=== PATIENT | female | born 1950 | race Caucasian/White ===

== ENCOUNTER → 2017-08-29 | Outpatient (CLI) | payer MEDICARE ==
[2016-12-19 14:47] VITALS: BMI 44.5
[~2017-08-29] MED LIST: ACTONEL; ALB17R INH; ALBU8.5H IH; ALE70 PO; ALEN70TA2 PO; ALPR-429 PO; ARIP5TAB28 PO; ASPI-1471 PO; ASPI81TA60 GT; ASPI81TA94 PO; BIMA2.5D5 OU; BIMOD OP; CALC-797 PO; CALC600T63 PO; CALCIUM; CEFU250T11 PO; CEPH250C37 PO; CHOL100059 PO; CHOL200074 PO; CIT20 PO; CITA-139 PO; CLI150 PO; CLIN300C99 PO; CPAP; DEN60I SUBQ; DOC100 PO; DOXY-181 PO; DOXY150T6 PO; ESC10 PO; ESCI5TAB3 PO; FERR-53 PO; FLU IM; FLU150 PO; FLU45SYR25 IM ONLY; FLU60SYR30 IM ONLY; FLUO-176 PO; FLUO-177 PO; FLUO-201 PO; FURO20TA19 PO; HYDR-4309 PO; IOPAMIDOL 76% 75 ML INFUS BTL 75 ML ONE; IPR14R ASDIRECTED; IPR14R INH; IPRA0.2S8 IH; LISI-362 PO; LISI-368 PO; LISINOPRIL; LORA-1456 PO; MAGN250T34 PO; MAGN355O8 PO; MAGN400C PO; METF-410 PO; METFORMIN; METR-160 PO; METXR500 PO; MON10 PO; MONT10TA PO; MONT10TA4 PO; NS(*) 0.9% 10 ML VIAL 10 ML ONE; NYST15PO4 TP; OMEP-137 PO; OMEP-153 PO; OXYC-373 PO; OXYGEN; OXYGEN INH; OXYGENHOME INH; PAN40 PO; PANT40TA65 PO; PER PO; PNEU0.5D3 IM; PNV51CAP PO; POTA8CAP9 PO; PRED-1 PO; PRED-314 PO; PRILOSEC; SERT-184 PO; SIMV-42 PO; SIMV-49 PO; SINGULAIR; SUCR1TAB51 PO; WARF5TAB23 PO; WARF7.5T26 PO
--- NOTE | 2017-08-29 15:00 | RADIOLOGY IMAGING REPORT ---
FACILITY: [facility] - [place] PATIENT NAME: Latonya Chang : 1950 MR: [id number] V: [id number] EXAM DATE: ORDERING PHYSICIAN: ADRIÁN ALEMAN TECHNOLOGIST: Location: [facility] Patient: Latonya Chang : 1950 Visit/Account:[id number] Date of Sevice: 08/29/2017 CT abdomen with IV contrast CT pelvis with IV contrast History: Abdominal pain and diarrhea COMPARISON STUDIES: CT abdomen and pelvis 03/02/2015. TECHNIQUE: Axial CT images were obtained through the abdomen and pelvis during injection of nonioni c iodinated intravenous contrast. Reformatted coronal and sagittal images were also obtained. Contrast: 75 ml of Isovue-370 IV contrast. One of the following dose optimization techniques was utilized in the performance of this exam: Autom ated exposure control; adjustment of the mA and/or kV according to the patient's size; or use of an i terative reconstruction technique. Specific details can be referenced in the facility's radiology C T exam operational policy. FINDINGS: Chest bases: Negative Liver: Liver has irregular margins and mild diffuse coarse enhancement. Right liver lobe length is 20 cm. Main portal vein measures 15 mm diameter. Gallbladder and bile ducts: Cholecystectomy. Normal sized bile ducts. Spleen: Spleen is large, measuring 15 x 7 x 14 cm, and is mildly increased compared to the previous study. Pancreas: Fat haziness is seen in the region of the pancreas head. Adrenal glands: negative Kidneys: negative Pelvic structures: Uterus and ovaries are atrophic. Bowel and mesenteries: Several sigmoid colon diverticula are without acute inflammatory change. Mahsa g small bowel segment in the left midabdomen is distended to a diameter of 4 cm, with focal transitio n to decompressed small bowel, best seen on coronal imaging. Ascites: None Vessels: Varices are observed throughout the abdomen and pelvis. Moderate calcification of the abdo elma aorta and common iliac arteries. Musculoskeletal: Chronic compression fracture of the superior endplate of T11. L4-5 grade 1 jasper listhesis is due to facet bone hypertrophy. Body wall: negative Lymph node assessment: negative IMPRESSION: 1. Fat haziness in the region of the pancreas head could indicate pancreatitis. Correlate with seru m amylase and lipase. 2. Suspicious for partial mechanical small bowel obstruction in the left midabdomen which could be c aused by adhesions. 3. Cirrhotic appearing liver has not significantly changed from 2015. 4. Findings of portal hypertension include increasing splenomegaly, abdominal/pelvic varices and dis tended main portal vein. Report Dictated By: Reshma Taylor MD at 08/29/2017 2:03 PM Report E-Signed By: Reshma Taylor MD at 08/29/2017 2:55 PM WSN:[email or web address]
== END ==
LOC: CT 02:39
PROVIDERS: ATTEND Family Medicine
DX: R16.1 Splenomegaly, not elsewhere classified (principal); K57.30 Diverticulosis of large intestine without perforation or abscess without bleeding; Z90.49 Acquired absence of other specified parts of digestive tract; E11.9 Type 2 diabetes mellitus without complications
CPT/HCPCS: 36415; 74177; Q9967; 82310; 82374; 82435; 82565; 82947; 84132; 84295; 84520

== ENCOUNTER 2017-09-05 07:38 | Outpatient (RCR) | payer MEDICARE ==
[2016-12-19 14:47] VITALS: BMI 44.5
[~2017-09-05 07:38] MED LIST changes: -MULT-1354 PO
[2017-09-05 10:53] VITALS: BP 132/75
[2017-09-05] MEDS ORDERED: MULT-1354 PO (11:02)
--- NOTE | 2017-09-05 13:13 | ONC Progress Note - NP.Halsey ---
Patient History Date of Service Sep 05, 2017 Reason For Visit/HPI Patient is seen in the clinic today for pain in the left side of her jaw. Patient reports that she previously experienced discomfort about a week ago with edema and tenderness. Patient believes that the pain has slightly decreased over the last week. She continues to have some swelling. In addition patient reports that she had approximately 2 months of experiencing constipation with occasional episodes of diarrhea. Patient then reports that yesterday she had a large bowel movement and feels that the discomfort in her abdomen has significantly improved. She continues to have bilateral flank discomfort and reports that she is having urgency with voiding. She had a CT scan done earlier this week which was ordered by Dr. Fields. This was reviewed today. Patient has no evidence of metastatic disease but a possibility of inflammation around the pancreas and a fatty liver with liver changes. Amylase and lipase were drawn by Dr. Ross and were noted to be within normal limits, liver enzymes are within normal limits. Has patient's pain has improved other then some discomfort possibly from voiding and labs were within normal limits no change in care has been made. Patient is usually seen in the clinic for her left breast invasive ductal carcinoma diagnosed in October 2011. Patient has been without evidence of recurrent disease since that time. Problem List (1) Breast cancer Oncology History The patient is a 67-year-old woman who presented with abnormal mammogram in October 2011, where there was 2.1 cm left breast spiculated region at the upper outer quadrant of the left breast. With additional mammography completed October 24, 2011, this showed 1.6 spiculated mass in the upper outer quadrant of the left breast. Ultrasound done on October 24, 2011 did reveal 1.1 cm irregular hypoechoic shadowing mass in the upper outer quadrant of the left breast at 2 o' clock position. Left breast biopsy on October 29, 2011 came back positive for invasive ductal carcinoma, ER negative, SD negative, HER2/prashanth negative, grade II /III. The patient ended up having lumpectomy and following surgery had adjuvant chemotherapy with six cycles of TC regimen with Taxotere and cyclophosphamide received between January 08, 2012 through April 22, 2012. This was followed by adjuvant radiation therapy and patient was put into complete remission. Medical History Family History: Essential hypertension FATHER (Myocardial Infarction; Hypertension), , Age:82 BROTHER OR SISTER (Prostate Cancer; Hypertension), Age:73 FH: COPD (chronic obstructive pulmonary disease) MOTHER (COPD), , Age:82 FH: glaucoma Maternal Grandfather (Glaucoma), FH: hypertension FH: myocardial infarction FATHER (Myocardial Infarction; Hypertension), , Age:82 FH: non-Hodgkin's lymphoma Maternal Uncle, FH: prostate cancer BROTHER OR SISTER (Prostate Cancer; Hypertension), Age:73 FH: stomach cancer Maternal Grandmother (Stomach Cancer), , Age:Unknown FH: stroke Paternal Grandfather (Stroke;CVA), Psychosocial History Social History The patient is single. She has one child, a son. The patient is retired. Denies any abuse of tobacco, alcohol or drugs. She used occasional drugs in the past. Smoking History: Yes Smoking Status: Former Smoker Exposure to Second Hand Smoke?: Yes Medications and Allergies Active Scripts Albuterol Sulfate (VENTOLIN HFA) 18 Gm Inh, 2 PUFF INH Q4H, #1 INH 5 Refills Prov:YVETTE ROSS MD 09/03/17 Potassium Chloride (POTASSIUM CHLORIDE) 8 Meq Capsule.er, 1 CAP PO QODAY, #30 TAB 6 Refills Prov:JOSTIN CHO WELL TESTING OPERATOR-BC, ONC 09/03/17 Ipratropium Peck 17 Mcg/Act (ATROVENT HFA 17 MCG/ACT) 12.9 Gm Inh, 2 PUFF ASDIRECTED QID, #1 INH 5 Refills Prov:YVETTE ROSS MD 08/29/17 Pantoprazole Sodium (PANTOPRAZOLE SODIUM) 40 Mg Tablet.dr, 1 TAB PO BID, #60 TAB 0 Refills Prov:YVETTE ROSS MD 08/27/17 Sucralfate (SUCRALFATE) 1 Gm Tablet, 1 GM PO BID, #60 TAB 5 Refills Prov:YVETTE ROSS MD 07/09/17 Warfarin Sodium (WARFARIN SODIUM) 5 Mg Tablet, 5-10 MG PO DIRECTED, #60 TAB 5 Refills 10 mg on Mon-Wed-Fri and 5mg on all other days (OR DIRECTED by Dr. Raya Ewing PharmD). Prov:SERA MCLAUGHLIN MD 12/22/16 Nystatin 100,000 Unit/Gm Top Powder (NYSTATIN 100,000 UNIT/GM TOP POWDER) 15 Gm Powder, 15 GM TP 2-3XD, #1 BOTTLE 1 Refill apply thin layer to affected area 2-3 times daily as needed until healed Prov:RAYA EWING PHARMD 12/12/16 Montelukast Sodium (SINGULAIR) 10 Mg Tablet, 1 TAB PO QDAY, #90 TAB 1 Refill Prov:YVETTE ROSS MD 03/29/15 Simvastatin (SIMVASTATIN) 20 Mg Tablet, 1 TAB PO HS, #30 TAB 11 Refills Prov:YVETTE ROSS MD 04/26/14 Lisinopril (LISINOPRIL) 10 Mg Tablet, 1 TAB PO QDAY, #90 TAB 3 Refills Prov:YVETTE ROSS MD 04/26/14 Reported Medications Multivitamin (ONE DAILY MULTIVITAMIN) 1 Each Tablet, 1 EACH PO DAILY 09/05/17 Magnesium Oxide (MAGNESIUM) 400 Mg Capsule, 1 CAP PO QDAY, CAPSULE 05/01/17 Fluoxetine Hcl (FLUOXETINE HCL) 10 Mg Capsule, 1 CAP PO QDAY, CAPSULE 11/26/16 Denosumab (PROLIA) 60 Mg/1 Ml Injs, 60 MG SUBQ Q 6 MONTHS 11/20/16 Alprazolam (XANAX) 0.5 Mg Tablet, 1 TAB PO TID Y for ANXIETY, TAB 11/20/16 Oxygen (OXYGEN) Inha, 2.5 L INH HS, L and with C-PAP at hs, and prn shortness of breath 04/04/15 Cpap (CPAP HOME) Inha, HS with 2.5 liters oxygen 04/04/15 Pnv51/Iron Fum/Fa/Om-3/Dha/Epa ( MULTI + DHA SOFTGEL) 1 Each Capsule, 1 EACH PO QDAY, CAPSULE 10/27/14 Cholecalciferol (Vitamin D3) (VITAMIN D-3) 2,000 Unit Capsule, 2 CAP PO QDAY 10/27/14 Bimatoprost (LUMIGAN) 2.5 Ml Drops, 1 GTT OU HS 03/24/14 Metformin Hcl (METFORMIN HCL) 500 Mg Tablet, 2 TAB PO BID 03/24/14 Discontinued Scripts Albuterol Sulfate 90 Mcg/Act (PROAIR HFA 90 MCG/ACT) 8.5 Gm Hfa.aer.ad, 2 PUFF IH Q4H Y for shortness of breath, #2 INH 3 Refills Prov:YVETTE ROSS MD 08/28/17 Allergies: Coded Allergies: Sulfa (Sulfonamide Antibiotics) (Verified Allergy, Mild, rash, 11/20/16) amoxicillin (Verified Allergy, Mild, rash, 11/20/16) erythromycin base (Verified Allergy, Mild, rash, 11/20/16) adhesive (Verified Allergy, Unknown, local reaction only if on for a long time, 11/20/16) Review of System/Physical Exam Review of Systems All Systems Reviewed/Normal: Yes, Except as Noted Respiratory: Positive for Shortness of Breath HEENT: Other (left-sided jaw pain without any tooth pain, no teeth in the area. ) Gastrointestinal: Diarrhea, Constipation, Abdominal Pain Genitourinary: Positive for Other (frequency and urgency without dysuria) Hematologic: Positive for Fatigue, Positive for Weakness Psychiatric: No Anxiety Skin: Positive for Erythema Physical Exam Vital Signs Temperature: 97.3 Pulse: 73 BP Systolic: 132 BP Diastolic: 75 Respiratory Rate: 16 O2 SAT: 90 O2 Delivery: Height (inches) 60.00 Weight lb: 228 Weight oz: 5.0 Weight Kg (Ming): Pain: 1 ECOG Score: 1 General: Stable, Well Developed, Well Nourished, Not In Acute Distress HEENT: No Trauma, No Conjunctivitis, No Icterus, No Mucositis, No Oral Thrush, No Sinus Tenderness, Other (mild tenderness with palpation over the left jaw and soft tissue with mild edema and mild erythema. I will do an ultrasound.) Neck: Supple Lungs: Clear to Auscultation (lungs are decreased bilaterally without wheezing) Heart: Regular Rate, Regular Rhythm Abdomen: No Hepatosplenomegaly, No Masses, Other (large body habitus makes assessment difficult. Recent CT was reviewed with patient.), Tenderness ( tenderness with deep palpation bilateral abdomen) Extremities: No Cyanosis, No Clubbing, No Edema Lymphadenopathy: No Cervical, No Subclavicular, Other (mild lymphadenopathy in the left mandible with mild erythema and tenderness with palpation) Psychiatric: Mood appears normal, Affect appears normal Skin: No Skin Rashes, No Bruising, No Purpura Diagnostic Studies Diagnostic Studies Laboratory Laboratory Tests 09/05/17 11:30: Urine Color Yellow, Urine Clarity Clear, Urine pH 5.0, Urine Specific [place] 1.021, Urine Protein Negative, Urine Glucose (UA) Negative, Urine Ketones Trace , Urine Blood Negative, Urine Nitrite Negative, Urine Bilirubin Negative, Urine Urobilinogen 2.0, Urine Leukocyte Esterase Negative, Urine RBC None, Urine WBC < 1, Urine Squamous Epithelial Cells Many, Urine Bacteria Negative, Urine Mucus Few Assessment and Plan Assessment & Plan 1. Stage II (pT2 pN0 cM0) left breast invasive ductal carcinoma. One sentinel lymph node was negative for metastasis. Tumor size was 2.4 cm triple negative. Patient received six courses of adjuvant chemotherapy with TC regimen with cyclophosphamide and Taxotere between January 08, 2012 through April 22, 2012, followed by radiation therapy with 59.4 Gy received between May 25, 2012 through July 22, 2012. Patient currently is in remission. It has been 5 years since her diagnosis so she will be seen yearly with a mammogram and CBC, chem panel and CA 27-29. 2. History of bilateral pulmonary embolism. 3. Diabetes mellitus on metformin. 4. Osteoporosis. 5. Chronic obstructive pulmonary disease. 6. Depression and anxiety. 7. Left-sided jaw discomfort: Ultrasound scheduled for evaluation. Patient previously had a stone in her right parotid. 8. Urinary frequency and urgency. UA is negative. 9. Abdominal discomfort. Patient has a non-descriptive bilateral abdominal discomfort with palpation and bilateral flank discomfort. CT of the abdomen and pelvis are suggestive of a possible pancreatitis without positive mass. Amylase and lipase were completed today and are within normal limits. CT also reports possible small bowel obstruction. Patient has had constipation for the last 2 months however had a very large bowel movement and bowel sounds are active today. She is encouraged to avoid spicy foods and greasy foods at this time. Patient will be seen in follow-up in one week to review symptoms. . PLAN 1. Continue followup in one week to review ultrasound soft tissue left-sided neck and review abdominal discomfort. 2. Patient to return in one year with CBC, chem panel and CA 27-29. 3. Patient is to contact us for any new concerns or complaints. 4. Patient is instructed to go to the emergency room if she has increased symptoms over the weekend of abdominal pain and acute constipation with no bowel movement. I personally spent a total of 35 minutes. Of that 35 minutes was counseling/ coordination of patient's care. See my note above for details. Copies to: YVETTE ROSS MD; ADRIÁN FIELDS NANCY J WELL TESTING OPERATOR-BC, ONC Sep 05, 2017 13:13
[2017-09-05] MEDS ORDERED: IPR14R ASDIRECTED (14:31)
--- NOTE | 2017-09-05 15:14 | RADIOLOGY IMAGING REPORT ---
FACILITY: [facility] - [place] PATIENT NAME: Latonya Chang : 1950 MR: [id number] V: [id number] EXAM DATE: ORDERING PHYSICIAN: JOSTIN CHO TECHNOLOGIST: Location: [facility] Patient: Latonya Chang : 1950 Visit/Account:[id number] Date of Sevice: 09/05/2017 ADDENDUM #1 Exam title should state ultrasound soft tissue head and neck Report Dictated By: Alyssa Manjarrez MD at 09/11/2017 8:47 AM Report E-Signed By: Alyssa Manjarrez MD at 09/11/2017 8:48 AM ORIGINAL REPORT Exam type: SOFT TISSUE HEAD NECK History: Swelling left side of neck and face Comparison: None. Findings: In zone one bilaterally there are probably lobular hypoechoic structures that appear relatively symme tric bilaterally measuring 2.3 x 1.8 x 2.7 cm on the right and 2.3 x 2.1 x 1.5 cm on the left. Due t o the symmetric nature this could represent an atypical presentation of the submandibular glands or p ossibly related to musculature. There is a small fatty replaced lymph node in zone three on the right measuring 8.6 x 4.5 x 12 mm There is a 6.9 x 4 x 7.7 mm fatty replaced lymph nodes on one on the right. In zone six on the right there is an 8.2 mm in diameter cyst in the right lobe the thyroid gland Incidentally noted is a large calcification at the left carotid bifurcation with acoustic shadowing. Flow was seen proximal and distal to this calcification although not in the zone of calcification. IMPRESSION: 1. There bilateral poly- lobular hypoechoic structures in zone one. Due to the symmetric nature the se may represent an atypical presentation of the submandibular glands or possibly related to musculat ure however given the clinical history of a prior right parotid mass and swelling of the left-sided t he face adjacent to the ear CT of the neck with contrast is recommended for further evaluation Incidentally noted is a large calcification at the left carotid bifurcation with acoustic shadowing. Flow seen proximal and distal to this calcification although not in the zone of the calcification th erefore a carotid duplex scan is recommended Report Dictated By: Alyssa Manjarrez MD at 09/05/2017 3:05 PM Report E-Signed By: Alyssa Manjarrez MD at 09/05/2017 3:10 PM DARION:MARIANA
--- NOTE | 2017-09-11 17:07 | RADIOLOGY IMAGING REPORT ---
FACILITY: [facility] PATIENT NAME: Latonya Chang : 1950 MR: [id number] V: [id number] EXAM DATE: ORDERING PHYSICIAN: JOSTIN CHO TECHNOLOGIST: Location: [facility] [place] Patient: Latonya Chang : 1950 Visit/Account:[id number] Date of Sevice: 09/11/2017 Bilateral carotid artery Doppler duplex ultrasound scan. HISTORY: Left carotid calcification. COMPARISON: Neck ultrasound 09/05/2017. A color flow Doppler duplex ultrasound scan with spectral analysis was performed on the carotid and v ertebral arteries bilaterally. Measurement of carotid stenosis is based on velocity parameters that correlate the residual internal carotid diameter with [place] Symptomatic Carotid Endarterecto my Trial (NASCET)- based stenosis levels. Right carotid peak systolic velocities are as follows: Superior right ICA - 130 cm/sec. Mid right ICA - 123 cm/sec. Proximal right ICA - 103 cm/sec. Right carotid bulb - 98 cm/sec. Superior right CCA - 87 cm/sec. Mid right CCA- 93 cm/sec. Inferior right CCA- 116 cm/sec. Proximal right ECA- 121 cm/sec. Mid right vertebral- 50 cm/sec. Right ICA/CCA ratio- 1.4 ( normal < 1.5 ). Antegrade right vertebral artery flow- YES. Left carotid peak systolic velocities are as follows: Superior left ICA - 106 cm/sec. Mid left ICA- 99 cm/sec. Proximal left ICA- 106 cm/sec. Left carotid bulb- 95 cm/sec. Superior left CCA- 83 cm/sec. Mid left CCA- 97 cm/sec. Inferior left CCA- 112 cm/sec. Proximal left ECA- 456 cm/sec. Mid left vertebral- 37 cm/sec. Left ICA/CCA ratio- 1.1 ( normal < 1.5). Antegrade left vertebral artery flow- YES. Calcified plaques are present in the carotid bulbs and proximal internal carotid and external carotid arteries bilaterally. IMPRESSION: 50-70% stenosis of the proximal right internal carotid artery. 30-50% stenoses of the carotid bulbs bilaterally. 30-50% stenosis of the proximal left internal carotid artery. Greater than 90% stenosis of the proximal left external carotid artery. Report Dictated By: Fernando Campo MD at 09/11/2017 4:45 PM Report E-Signed By: Fernando Campo MD at 09/11/2017 5:02 PM WSN:[email or web address]
[2017-09-16] MEDS ORDERED: IOPAMIDOL 76% 75 ML INFUS BTL 75 ML ONE (08:27)
--- NOTE | 2017-09-16 11:00 | RADIOLOGY IMAGING REPORT ---
FACILITY: [facility] PATIENT NAME: Latonya Chang : 1950 MR: [id number] V: [id number] EXAM DATE: ORDERING PHYSICIAN: JOSTIN CHO TECHNOLOGIST: Location: [facility] [place] Patient: Latonya Chang : 1950 Visit/Account:[id number] Date of Sevice: 09/16/2017 EXAMINATION: CT neck with IV contrast HISTORY: Parotid mass TECHNIQUE: CT was obtained through the neck following IV contrast administration. Sagittal and co gerhard reformatted images were generated. 75 mL of IV Isovue-370 injected. One of the following dose optimization techniques was utilized in the performance of this exam: autom ated exposure control; adjustment of the mA and/or kV according to patient size; or use of iterative reconstruction technique. Specific details can be referenced in the facility's radiology CT exam ope rational policy. COMPARISON: Ultrasound September 05, 2017 FINDINGS: Parotid/submandibular and thyroid glands: The right parotid gland is asymmetrically smaller when comp ared to the right keeping with residua of prior surgery. No right parotid gland mass identified. Mi nimal curvilinear granulation tissue adjacent to the right parotid gland. Otherwise normal. Pharyngeal and retropharyngeal soft tissues: Normal. Oral cavity and chair mechanic space soft tissues: Normal. Larynx/glottis and airway: Low density structure within or adjacent to the strap musculature just inf erior to the hyoid bone measures 1.9 x 1.3 cm transverse by 1.6 cm craniocaudad, axial image 52. Lymph nodes: Normal. Vessels: Calcified plaque in the carotid bulbs and proximal internal carotid arteries. Visualized orbits / brain: No significant finding. Upper chest: Left upper lobe 5 mm nodule, image 79. Bones/sinuses/mastoid air cells: Normal. IMPRESSION: 1. No parotid region mass. Diminutive right parotid gland in keeping with residua of prior surgery. 2. 1.9 x 1.3 x 1.6 cm probable benign thyroglossal duct cyst within or adjacent to the strap muscula ture just beneath the hyoid bone. Report Dictated By: Randell Jeong MD at 09/16/2017 10:47 AM Report E-Signed By: Randell Jeong MD at 09/16/2017 10:55 AM WSN:[id number]
[2017-09-26] MEDS ORDERED: FLUO-176 PO (16:28)
== END 2017-10-08 14:21 | disposition home or self-care (01) ==
LOC: ONC 07:38
PROVIDERS: ATTEND Nurse Practitioner Family
DX: Z85.3 Personal history of malignant neoplasm of breast (principal); Z86.711 Personal history of pulmonary embolism; E11.9 Type 2 diabetes mellitus without complications; M81.0 Age-related osteoporosis without current pathological fracture; J44.9 Chronic obstructive pulmonary disease, unspecified; R39.15 Urgency of urination; R35.0 Frequency of micturition; R10.9 Unspecified abdominal pain; Z79.899 Other long term (current) drug therapy; Z87.891 Personal history of nicotine dependence; M79.89 Other specified soft tissue disorders; R91.1 Solitary pulmonary nodule
CPT/HCPCS: 36415; 76536; 80074; 81001; 82150; 83036; 83690; 93880; G0463; G0472; 70491; 82040; 82247; 82310; 82374; 82435; 82465; 82565; 82947; 83718; 84075; 84132; 84155; 84295; 84450; 84460; 84478; 84520; 86803; 99212; Q9967

== ENCOUNTER → 2017-09-05 | Outpatient (CLI) | payer MEDICARE ==
[2016-12-19 14:47] VITALS: BMI 44.5
[~2017-09-05] MED LIST changes: +ALB18R INH; -IOPAMIDOL 76% 75 ML INFUS BTL 75 ML ONE; +MULT-1354 PO; -NS(*) 0.9% 10 ML VIAL 10 ML ONE
[2017-09-05 10:49] LABS: LDL CHOLESTEROL 71 mg/dl
== END ==
LOC: LAB 09:50
PROVIDERS: ATTEND Internal Medicine
DX: R10.9 Unspecified abdominal pain (principal); J44.9 Chronic obstructive pulmonary disease, unspecified; K74.60 Unspecified cirrhosis of liver; I10 Essential (primary) hypertension; E78.2 Mixed hyperlipidemia; E11.65 Type 2 diabetes mellitus with hyperglycemia
CPT/HCPCS: 36415; 80074; 82150; 83036; 83690; G0472; 82040; 82247; 82310; 82374; 82435; 82465; 82565; 82947; 83718; 84075; 84132; 84155; 84295; 84450; 84460; 84478; 84520; 86803

== ENCOUNTER → 2017-09-11 | Outpatient (CLI) | payer MEDICARE ==
[2016-12-19 14:47] VITALS: BMI 44.5
[~2017-09-11] MED LIST changes: +MULT-1354 PO
--- NOTE | 2017-09-12 09:06 | RADIOLOGY IMAGING REPORT ---
FACILITY: [facility] PATIENT NAME: GUILLE GRANT : [id number] MR: [id number] V: [id number] EXAM DATE: ORDERING PHYSICIAN: ADRIÁN ALEMAN TECHNOLOGIST: Jennifer Monroy PROCEDURE:BILATERAL DIGITAL SCREENING MAMMOGRAM WITH CAD ASSISTED INTERPRETATION & 3D TOMOSYNTHESIS COMPARISON:Prior mammograms 07/25/16, 10/06/15, 10/04/14, 04/20/14, 02/08/14, 08/03/13 INDICATIONS:SCREENING FINDINGS: Again noted of postsurgical changes from lumpectomy in the upper outer quadrant of the Left breast. The parenchymal pattern has remained stable allowing for difference in mammographic technique & patient positioning. Skin thickening over the Left breast from prior radiation therapy also again noted. There is no evidence of malignant appearing mass, malignant appearing calcifications or other secondary sign of malignancy in either breast at this time. DIAGNOSTIC CATEGORY 2--BENIGN FINDING. RECOMMENDATIONS: ROUTINE MAMMOGRAM AND CLINICAL EVALUATION. IMPRESSION: BIRADS 2: Benign finding No significant abnormality identified at this time other than postoperative and plus radiation changes of the Left breast. Dictated by: Alyssa Manjarrez M.D. on 09/11/2017 at 16:57 Transcribed by: BRITTANY on 09/12/2017 at 9:02 Approved by: Alyssa Manjarrez M.D. on 09/12/2017 at 9:05 [facility]
== END ==
LOC: MAMO 00:50
PROVIDERS: ATTEND Family Medicine
DX: Z12.31 Encounter for screening mammogram for malignant neoplasm of breast (principal)
CPT/HCPCS: 77063; 77067

== ENCOUNTER → 2017-09-16 | Outpatient (CLI) | payer MEDICARE ==
[2016-12-19 14:47] VITALS: BMI 44.5
--- NOTE | 2017-09-16 10:06 | RADIOLOGY IMAGING REPORT ---
FACILITY: [facility] PATIENT NAME: Latonya Chang : 1950 MR: [id number] V: [id number] EXAM DATE: ORDERING PHYSICIAN: YVETTE THOMAS TECHNOLOGIST: Location: [facility] Patient: Latonya Chang : 1950 Visit/Account:[id number] Date of Sevice: 09/16/2017 LIVER HISTORY: Cirrhosis, cholecystectomy COMPARISON: CT abdomen pelvis revealed very 2017 FINDINGS: Gallbladder: Surgically removed Liver: The liver is enlarged at 19.3 cm in length. There is a lobular contour to the liver. As appr opriate flow identified in the portal vein however the main portal vein is dilated at 1.8 cm. Common duct: Normal, five mm diameter. Pancreas: Slightly inhomogeneous Right kidney: Right kidney appears unremarkable measuring 10.6 cm in length. The resistive index is 0.72 Upper abdominal aorta and IVC: Patent. Ascites: None visualized. IMPRESSION: Hepatomegaly with a lobular contour to the liver consistent with the clinical history of cirrhosis. The portal vein demonstrates appropriate flow however the main portal vein is dilated at 1.8 cm consi stent with portal hypertension The pancreas appear slightly inhomogeneous could be secondary to inflammation Report Dictated By: Alyssa Manjarrez MD at 09/16/2017 9:56 AM Report E-Signed By: Alyssa Manjarrez MD at 09/16/2017 10:02 AM WSN:[email or web address]
== END ==
LOC: US 01:13
PROVIDERS: ATTEND Internal Medicine
DX: Z90.49 Acquired absence of other specified parts of digestive tract (principal); R16.0 Hepatomegaly, not elsewhere classified; K86.89 Other specified diseases of pancreas; K76.6 Portal hypertension
CPT/HCPCS: 76705

== ENCOUNTER → 2017-10-21 | Outpatient (CLI) | payer MEDICARE ==
[2016-12-19 14:47] VITALS: BMI 44.5
== END ==
LOC: LAB 11:52
PROVIDERS: ATTEND Internal Medicine Cardiovascular Disease
DX: I73.9 Peripheral vascular disease, unspecified (principal); I65.23 Occlusion and stenosis of bilateral carotid arteries; I10 Essential (primary) hypertension; E78.2 Mixed hyperlipidemia; R06.09 Other forms of dyspnea
CPT/HCPCS: 36415; 82465; 83718; 84478; 85027

== ENCOUNTER → 2017-10-23 | Outpatient (CLI) | payer MEDICARE ==
[2016-12-19 14:47] VITALS: BMI 44.5
[~2017-10-23] MED LIST changes: +REGADENOSON 0.4 MG/5 ML SYR ONE
--- NOTE | 2017-10-23 13:50 | RADIOLOGY IMAGING REPORT ---
FACILITY: [facility] - [place] PATIENT NAME: Latonya Chang : 1950 MR: [id number] V: [id number] EXAM DATE: ORDERING PHYSICIAN: DAYANNA LEVI TECHNOLOGIST: Location: [facility] - [place], [place] Patient: Latonya Chang : 1950 Visit/Account:[id number] Date of Sevice: 10/23/2017 REGADENOSON (LEXISCAN) MYOCARDIAL PERFUSION IMAGING. EXAMINATION: Single isotope SPECT imaging with regadenoson infusion and gated SPECT imaging. DATE OF EXAMINATION: October 23, 2017. REQUESTING PHYSICIAN:AMITA INDICATION: Exertional dyspnea with a history of PVD hypertension and carotid stenosis PROCEDURE: After informed consent the patient received an intravenous injection of Tc-99m sestamibi followed at an appropriate time interval by rest imaging. The patient then subsequently received an intravenous infusion of 0.4 mg of regadenoson per protocol without complication. Resting heart rate was 75 bpm with a peak heart rate of 82 bpm. Blood pressure at rest was 142/75 and following infusi on was 160/80 . Baseline EKG demonstrates sinus rhythm. There were no EKG changes of ischemia follo wing infusion. Non-specific symptoms were reported. The patient then received an intravenous inject ion of Tc-99m sestamibi followed by stress imaging. DOSE of Tc-99m sestamibi (mCi): REST: 12.1 STRESS: 29.6 RAW DATA: Examination of the summed raw data revealed a excellent quality study. MYOCARDIAL PERFUSION: The tomographic images demonstrate normal myocardial perfusion study without e vidence of myocardial ischemia or infarct. GATED IMAGES: The gated images demonstrate normal LV systolic performance and wall motion with LVEF 72%. IMPRESSION: 1. Nondiagnostic ECG portion of Lexiscan stress test. 2. Normal myocardial perfusion study without evidence of myocardial ischemia or infarct 3. Normal LV systolic performance and wall motion with LVEF 72% Report Dictated By: Virgilio Boyle at 10/23/2017 1:40 PM Report E-Signed By: Virgilio Boyle at 10/23/2017 1:45 PM WSN:[id number]
--- NOTE | 2017-10-23 14:55 | RT STRESS TEST REPORT ---
FACILITY: [facility] [place] PATIENT NAME: GUILLE GRANT : [id number] MR: [id number] V: [id number] EXAM DATE: ORDERING PHYSICIAN: DAYANNA LEVI TECHNOLOGIST: Tonny Acquisition Time: 2017-10-23 09:24:24 Total Exercise Time: 00:01:00 Test Indications: Dyspnea Medications: SEE LIST Protocol: LEXISCAN Max HR: 089 BPM 58% of Pred: 153 BPM Max BP: 160/080 mmHG Max Work Load: 1.0 METS see nuclear med report Confirmed by AMAN PINEDA ([id number]) on 10/23/2017 2:53:51 PM Referred By: DAYANNA LEVI Overread By: AMAN PINEDA
== END ==
LOC: NUC 01:45
PROVIDERS: ATTEND Internal Medicine Cardiovascular Disease
DX: I73.9 Peripheral vascular disease, unspecified (principal); I65.23 Occlusion and stenosis of bilateral carotid arteries; I10 Essential (primary) hypertension; E78.2 Mixed hyperlipidemia; R06.09 Other forms of dyspnea; R06.02 Shortness of breath
CPT/HCPCS: 78452; 93017; A9500; J2785

== ENCOUNTER 2017-10-24 15:26 | Emergency (ER) | payer MEDICARE ==
[2016-12-19 14:47] VITALS: Wt 98.0 kg
[~2017-10-24 15:26] MED LIST changes: -REGADENOSON 0.4 MG/5 ML SYR ONE
[2017-10-24] MEDS ORDERED: ASPIRIN 81 MG CHEW PO ONE (16:00)
[2017-10-24 16:19] LABS: PLATELET COUNT, AUTOMATED 76 K/uL (150-450)
--- NOTE | 2017-10-24 16:44 | RADIOLOGY IMAGING REPORT ---
FACILITY: [facility] - [place] PATIENT NAME: Latonya Chang : 1950 MR: [id number] V: [id number] EXAM DATE: ORDERING PHYSICIAN: CRISSY SULTANA TECHNOLOGIST: Location: [facility] Patient: Latonya Chang : 1950 Visit/Account:[id number] Date of Sevice: 10/24/2017 2 VIEWS CHEST INDICATION: Chest pain. COMPARISON: 12/20/2016. FINDINGS: Cardiomediastinal silhouette and pulmonary vessels within normal limits. Improved aeration from previous exam. No focal area of consolidation. There is no pneumothorax or pleural effusion. No nodule. Chronic interstitial changes. Upper abdomen is unremarkable. No acute bony abnormality. Stable mild compression the lower thoracic vertebral body. IMPRESSION: 1. No acute cardiopulmonary process. Report Dictated By: Juarez Rose at 10/24/2017 4:37 PM Report E-Signed By: Juarez Rose at 10/24/2017 4:39 PM WSN:[id number]
--- NOTE | 2017-10-24 17:24 | ER Report ---
History and Physical Time Seen By MD: 15:45 Hx. of Stated Complaint: PATIENT REPORTS THAT SHE STARTED HAVING PRESSURE IN HER CHEST AROUND 11 THIS MORNING HPI/ROS This is a 67-year-old female with a past medical history significant for breast cancer. She ironically had a nuclear medicine stress test just yesterday which was ordered due to dyspnea and not due to chest pain. She started to develop chest pain this morning around 10 or 11 AM she said. She describes the pain as an ache or discomfort and rates it as a 2 out of 10. She has no radiation of the pain and no associated symptoms of nausea, vomiting, shortness of breath, or fatigue. She has known vascular disease in her left carotid as well as her left inguinal artery. She otherwise feels well, and states that she only came to the emergency department because the staff in the cancer center said that she should come to be evaluated in the emergency department for her chest discomfort. Remainder of the 14 system rev: Yes Allergies: Coded Allergies: Sulfa (Sulfonamide Antibiotics) (Verified Allergy, Mild, rash, 11/20/16) amoxicillin (Verified Allergy, Mild, rash, 11/20/16) erythromycin base (Verified Allergy, Mild, rash, 11/20/16) adhesive (Verified Allergy, Unknown, local reaction only if on for a long time, 11/20/16) Home Meds Active Scripts Nystatin 100,000 Unit/Gm Top Powder (NYSTATIN 100,000 UNIT/GM TOP POWDER) 15 Gm Powder, 15 GM TP 2-3XD, #1 BOTTLE 1 Refill apply thin layer to affected area 2-3 times daily as needed until healed Prov:YVETTE THOMAS MD 10/21/17 Fluoxetine Hcl (FLUOXETINE HCL) 10 Mg Capsule, 1 CAP PO BID, #60 CAPSULE Prov:YVETTE THOMAS MD 09/26/17 Ipratropium [place] 17 Mcg/Act (ATROVENT HFA 17 MCG/ACT) 12.9 Gm Inh, 2 PUFF ASDIRECTED QID, #1 INH 5 Refills Prov:YVETTE THOMAS MD 09/05/17 Albuterol Sulfate (VENTOLIN HFA) 18 Gm Inh, 2 PUFF INH Q4H, #1 INH 5 Refills Prov:YVETTE THOMAS MD 09/03/17 Potassium Chloride (POTASSIUM CHLORIDE) 8 Meq Capsule.er, 1 CAP PO QODAY, #30 TAB 6 Refills Prov:MARQUISJOSTIN J DINING SERVICE INSPECTOR-BC, ONC 09/03/17 Pantoprazole Sodium (PANTOPRAZOLE SODIUM) 40 Mg Tablet.dr, 1 TAB PO BID, #60 TAB 0 Refills Prov:YVETTE THOMAS MD 08/27/17 Sucralfate (SUCRALFATE) 1 Gm Tablet, 1 GM PO BID, #60 TAB 5 Refills Prov:YVETTE THOMAS MD 07/09/17 Warfarin Sodium (WARFARIN SODIUM) 5 Mg Tablet, 5-10 MG PO DIRECTED, #60 TAB 5 Refills 10 mg on Mon-Wed-Fri and 5mg on all other days (OR DIRECTED by Dr. Raya Brtio PharmD). Prov:SERA MCLAUGHLIN MD 12/22/16 Montelukast Sodium (SINGULAIR) 10 Mg Tablet, 1 TAB PO QDAY, #90 TAB 1 Refill Prov:YVETTE THOMAS MD 03/29/15 Simvastatin (SIMVASTATIN) 20 Mg Tablet, 1 TAB PO HS, #30 TAB 11 Refills Prov:YVETTE THOMAS MD 04/26/14 Lisinopril (LISINOPRIL) 10 Mg Tablet, 1 TAB PO QDAY, #90 TAB 3 Refills Prov:YVETTE THOMAS MD 04/26/14 Reported Medications Multivitamin (ONE DAILY MULTIVITAMIN) 1 Each Tablet, 1 EACH PO DAILY 09/05/17 Magnesium Oxide (MAGNESIUM) 400 Mg Capsule, 1 CAP PO QDAY, CAPSULE 05/01/17 Denosumab (PROLIA) 60 Mg/1 Ml Injs, 60 MG SUBQ Q 6 MONTHS 11/20/16 Alprazolam (XANAX) 0.5 Mg Tablet, 1 TAB PO TID Y for ANXIETY, TAB 11/20/16 Oxygen (OXYGEN) Inha, 2.5 L INH HS, L and with C-PAP at hs, and prn shortness of breath 04/04/15 Cpap (CPAP HOME) Inha, HS with 2.5 liters oxygen 04/04/15 Pnv51/Iron Fum/Fa/Om-3/Dha/Epa ( MULTI + DHA SOFTGEL) 1 Each Capsule, 1 EACH PO QDAY, CAPSULE 10/27/14 Cholecalciferol (Vitamin D3) (VITAMIN D-3) 2,000 Unit Capsule, 2 CAP PO QDAY 10/27/14 Bimatoprost (LUMIGAN) 2.5 Ml Drops, 1 GTT OU HS 03/24/14 Metformin Hcl (METFORMIN HCL) 500 Mg Tablet, 2 TAB PO BID 03/24/14 Reviewed Nurses Notes: Yes Old Medical Records Reviewed: Yes Hx Smoking: Yes Smoking Status: Former Smoker Exposure to Second Hand Smoke?: Yes Hx Substance Use Disorder: Yes (SOMETIMES I SMOKE POT) Hx Alcohol Use: No Family History of: HTN, Cancer Constitutional Vital Sign - Last 24 Hours 10/24/17 10/24/17 10/24/17 10/24/17 15:32 15:34 15:41 15:56 Temp 97.8 Pulse 68 76 70 Resp 20 30 B/P (MAP) 147/71 (96) 147/71 Pulse Ox 96 94 96 O2 Delivery Nasal Cannula 10/24/17 10/24/17 10/24/17 10/24/17 16:11 16:26 16:40 16:41 Pulse 73 67 69 Resp 14 24 16 B/P (MAP) 137/60 (85) Pulse Ox 94 95 10/24/17 10/24/17 10/24/17 10/24/17 16:56 17:00 17:11 17:16 Pulse 69 66 64 Resp 26 21 14 B/P (MAP) 129/66 (87) Pulse Ox 95 94 94 10/24/17 17:30 B/P (MAP) 123/63 (83) Physical Exam General Appearance: The patient is alert, has no immediate need for airway protection and no current signs of toxicity. Eyes: Pupils equal and round no injection. Respiratory: Chest is non tender, lungs are clear to auscultation. Cardiac: regular rate and rhythm Gastrointestinal: Abdomen is soft and non tender, no masses, bowel sounds normal. Musculoskeletal: No chest wall TTP Neck: Neck is supple and non tender. Extremities have full range of motion and are non tender. Skin: No rashes or lesions. DIFFERENTIAL DIAGNOSIS: After history and physical exam differential diagnosis was considered for chest pain including but not limited to myocardial ischemia, pericarditis pulmonary embolus, chest wall pain, pleural inflammation and pulmonary infectious causes. Medical Decision Making Data Points Result Diagram: 10/24/17 1548 10/24/17 1548 Laboratory Hematology Test 10/24/17 15:48 10/24/17 17:30 Red Blood Count 5.01 M/uL (4.17-5.56) Mean Corpuscular Volume 81.1 fL (80.0-96.0) Mean Corpuscular Hemoglobin 26.5 pg (26.0-33.0) Mean Corpuscular Hemoglobin Concent 32.8 g/dL (32.0-36.0) Red Cell Distribution Width 18.2 % (11.5-14.5) Mean Platelet Volume 9.2 fL (7.2-11.1) Neutrophils (%) (Auto) 66.6 % (39.4-72.5) Lymphocytes (%) (Auto) 21.4 % (17.6-49.6) Monocytes (%) (Auto) 9.4 % (4.1-12.4) Eosinophils (%) (Auto) 2.1 % (0.4-6.7) Basophils (%) (Auto) 0.5 % (0.3-1.4) Nucleated RBC Relative Count (auto) 0.1 /100WBC Neutrophils # (Auto) 2.6 K/uL (2.0-7.4) Lymphocytes # (Auto) 0.8 K/uL (1.3-3.6) Monocytes # (Auto) 0.4 K/uL (0.3-1.0) Eosinophils # (Auto) 0.1 K/uL (0.0-0.5) Basophils # (Auto) 0.0 K/uL (0.0-0.1) Nucleated RBC Absolute Count (auto) 0.00 K/uL D-Dimer Quantitative (PE/DVT) 0.32 ug/ml (0-0.50) Sodium Level 139 mmol/L (137-145) Potassium Level 3.4 mmol/L (3.5-5.0) Chloride Level 99 mmol/L (98-107) Carbon Dioxide Level 27 mmol/L (22-31) Blood Urea Nitrogen 8 mg/dl (7-18) Creatinine 0.60 mg/dl (0.52-1.04) Glomerular Filtration Rate Calc > 60.0 Random Glucose 161 mg/dl (75-110) Calcium Level 9.0 mg/dl (8.4-10.2) Total Bilirubin 0.7 mg/dl (0.2-1.3) Aspartate Amino Transf (AST/SGOT) 31 U/L (0-35) Alanine Aminotransferase (ALT/SGPT) 31 U/L (0-56) Alkaline Phosphatase 70 U/L (0-126) Total Protein 7.5 gm/dl (6.3-8.2) Albumin 3.8 g/dl (3.5-5.0) Troponin I 0.017 ng/ml Chemistry Test 10/24/17 15:48 10/24/17 17:30 White Blood Count 3.9 k/uL (4.5-11.0) Red Blood Count 5.01 M/uL (4.17-5.56) Hemoglobin 13.3 g/dL (12.0-16.0) Hematocrit 40.6 % (34.0-47.0) Mean Corpuscular Volume 81.1 fL (80.0-96.0) Mean Corpuscular Hemoglobin 26.5 pg (26.0-33.0) Mean Corpuscular Hemoglobin Concent 32.8 g/dL (32.0-36.0) Red Cell Distribution Width 18.2 % (11.5-14.5) Platelet Count 76 K/uL (150-450) Mean Platelet Volume 9.2 fL (7.2-11.1) Neutrophils (%) (Auto) 66.6 % (39.4-72.5) Lymphocytes (%) (Auto) 21.4 % (17.6-49.6) Monocytes (%) (Auto) 9.4 % (4.1-12.4) Eosinophils (%) (Auto) 2.1 % (0.4-6.7) Basophils (%) (Auto) 0.5 % (0.3-1.4) Nucleated RBC Relative Count (auto) 0.1 /100WBC Neutrophils # (Auto) 2.6 K/uL (2.0-7.4) Lymphocytes # (Auto) 0.8 K/uL (1.3-3.6) Monocytes # (Auto) 0.4 K/uL (0.3-1.0) Eosinophils # (Auto) 0.1 K/uL (0.0-0.5) Basophils # (Auto) 0.0 K/uL (0.0-0.1) Nucleated RBC Absolute Count (auto) 0.00 K/uL D-Dimer Quantitative (PE/DVT) 0.32 ug/ml (0-0.50) Glomerular Filtration Rate Calc > 60.0 Calcium Level 9.0 mg/dl (8.4-10.2) Total Bilirubin 0.7 mg/dl (0.2-1.3) Aspartate Amino Transf (AST/SGOT) 31 U/L (0-35) Alanine Aminotransferase (ALT/SGPT) 31 U/L (0-56) Alkaline Phosphatase 70 U/L (0-126) Total Protein 7.5 gm/dl (6.3-8.2) Albumin 3.8 g/dl (3.5-5.0) Troponin I 0.017 ng/ml Coagulation Test 10/24/17 15:48 D-Dimer Quantitative (PE/DVT) 0.32 ug/ml EKG/Imaging EKG Interpretation 12 lead EKG: Rhythm: normal sinus rhythm [place]: normal QRS: normal ST segments: non specific ST changes [ ] Imaging X-ray: CXR was obtained. I viewed the images myself on the PACS system. My interpretation of the images is: no acute changes. The radiologist interpretation had no clinically significant variation from this interpretation. ED Course/Re-evaluation ED Course This is a 67-year-old female with a past medical history significant for carotid disease as well as rest cancer last treated in 2012. She presented to the emergency department from the cancer center with 1-2 out of 10 discomfort in her left chest that started at 10:00 this morning. She has no nausea, vomiting, shortness of breath, or fatigue. The pain does not radiate. Her D dimer was negative and I do not think this represents a PE or a dissection. She had a normal nuclear medicine stress test yesterday. She had 2 troponins 90 minutes apart, and the 2nd troponin was drawn 7 hours after the onset of chest pain. Both troponins were negative. I do not think her pain is from ACS. I think it is likely musculoskeletal. I'm going to discharge her to home with follow-up with her primary care physician. Decision to Disposition Date: Oct 24, 2017 Decision to Disposition Time: 18:02 Depart Departure Latest Vital Signs Vital Signs Date Time Temp Pulse Resp B/P (MAP) Pulse Ox O2 Delivery O2 Flow Rate FiO2 10/24/17 17:30 123/63 (83) 10/24/17 17:16 64 14 94 10/24/17 15:34 97.8 Nasal Cannula Impression: Primary Impression: Chest pain Condition: Improved Disposition: HOME OR SELF-CARE Referrals: ARDIÁN ALEMAN DO (PCP) Patient Instructions: Chest Pain (ED) Problem Qualifiers Primary Impression: Chest pain Chest pain type: other chest pain Qualified Codes: R07.89 - Other chest pain CRISSY SULTANA MD Oct 24, 2017 17:24
--- NOTE | 2017-10-24 18:10 | EKG ---
[place] [facility] [place]: GUILLE GRANT : [id number] MR: [id number] V: [id number] EXAM DATE: ORDERING PHYSICIAN: CRISSY SULTANA TECHNOLOGIST: FRANKIE Test Reason : CHEST PRESSURE Blood Pressure : / mmHG Vent. Rate : 070 BPM Atrial Rate : 070 BPM P-R Int : 130 ms QRS Dur : 080 ms QT Int : 436 ms P-R-T Axes : 059 079 049 degrees QTc Int : 470 ms Sinus rhythm with PAC Low voltage QRS Isolated T inversion in V4 of unclear significance When compared with ECG of 18-DEC-2016 15:48, Now with a PAC and isolated T inversion in V4 Confirmed by BHAVANA FINLEY ([id number]) on 10/24/2017 6:36:39 PM Referred By: RD Confirmed By:BHAVANA FINLEY
[2017-10-24 18:22] VITALS: BP 141/72
== END 2017-10-24 18:27 | disposition home or self-care (01) ==
LOC: ER 15:42
DX: R07.89 Other chest pain (principal)
CPT/HCPCS: 71046; 84484; 85025; 85379; 93005; 99284; A9270; 82040; 82247; 82310; 82374; 82435; 82565; 82947; 84075; 84132; 84155; 84295; 84450; 84460; 84520

== ENCOUNTER 2017-11-04 09:22 | Outpatient (RCR) | payer MEDICARE ==
[2016-12-19 14:47] VITALS: BMI 44.5
[~2017-11-04 09:22] MED LIST changes: -CITA-139 PO; +CITA-145 PO; -METF-410 PO; +METF-411 PO
[2017-11-04 16:58] VITALS: BP 150/73
[2017-11-04] MEDS ORDERED: DENOSUMAB 60 MG/1 ML SYR SUBQ ONE (17:00)
== END 2017-12-10 13:19 | disposition home or self-care (01) ==
LOC: ONC 09:22
PROVIDERS: ATTEND Family Medicine
DX: C50.919 Malignant neoplasm of unspecified site of unspecified female breast (principal)
CPT/HCPCS: 96372; J0897

== ENCOUNTER → 2017-11-21 | Outpatient (CLI) | payer MEDICARE ==
[2016-12-19 14:47] VITALS: BMI 44.5
== END ==
LOC: LAB 09:09
PROVIDERS: ATTEND Internal Medicine Cardiovascular Disease
DX: I73.9 Peripheral vascular disease, unspecified (principal); I65.23 Occlusion and stenosis of bilateral carotid arteries; I10 Essential (primary) hypertension; E78.2 Mixed hyperlipidemia; R06.09 Other forms of dyspnea
CPT/HCPCS: 36415; 82465; 83718; 84478; 85027

== ENCOUNTER → 2017-12-16 | Outpatient (CLI) | payer MEDICARE ==
[2016-12-19 14:47] VITALS: BMI 44.5
== END ==
LOC: LAB 16:50
PROVIDERS: ATTEND Nurse Practitioner Family
DX: R53.81 Other malaise (principal); R73.01 Impaired fasting glucose; E53.8 Deficiency of other specified B group vitamins; E87.8 Other disorders of electrolyte and fluid balance, not elsewhere classified
CPT/HCPCS: 36415; 82040; 82247; 82310; 82374; 82435; 82565; 82607; 82947; 83036; 84075; 84132; 84155; 84295; 84443; 84450; 84460; 84520; 85027

== ENCOUNTER 2017-12-30 11:26 | Emergency (ER) | payer MEDICARE ==
[2016-12-19 14:47] VITALS: Wt 98.1 kg
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
[2017-12-30] MEDS ORDERED: MOM PO (11:48)
[2017-12-30] MEDS ORDERED: ASPIRIN 81 MG CHEW PO ONE (12:20)
--- NOTE | 2017-12-30 12:48 | EKG ---
FACILITY: [facility] - [place] PATIENT NAME: GUILLE GRANT : [id number] MR: [id number] V: [id number] EXAM DATE: ORDERING PHYSICIAN: SHIVANI PAREDES TECHNOLOGIST: KOREY Dewitt Reason : Blood Pressure : / mmHG Vent. Rate : 067 BPM Atrial Rate : 067 BPM P-R Int : 126 ms QRS Dur : 072 ms QT Int : 456 ms P-R-T Axes : 043 074 044 degrees QTc Int : 481 ms Sinus rhythm Question lead reversal of V2 and V3 Abnormal ECG Confirmed by SERA MCLAUGHLIN ([id number]) on 12/30/2017 4:14:02 PM Referred By: Confirmed By:SERA MCLAUGHLIN
[2017-12-30 12:53] LABS: PLATELET COUNT, AUTOMATED 89 K/uL (150-450)
--- NOTE | 2017-12-30 13:47 | RADIOLOGY IMAGING REPORT ---
FACILITY: [facility] PATIENT NAME: Latonya Chang : 1950 MR: [id number] V: [id number] EXAM DATE: ORDERING PHYSICIAN: SHIVANI PAREDES TECHNOLOGIST: [place] [facility] [place] Latonya [place] : 1950 Visit/Account:[id number] Date of Sevice: 12/30/2017 Exam type: CERVICAL SPINE MIN 4 VIEW History: Neck pain Comparison: MR October 27, 2012. Findings: Five views of cervical spine reveal no evidence of acute fractures or subluxations. There is mild di sc space narrowing at C4-5, C5-6 and C6-7. Small anterior osteophytes are present. There is moderat e foraminal narrowing on the left at C2-3 and on the right at C4-5 and C5-6 No evidence of prevertebr al soft tissue swelling. Extensive vascular calcifications are identified in both sides of the neck. IMPRESSION: 1. Multilevel spondylotic changes of the cervical spine as detailed above Extensive vascular calcifications in both sides of the neck Report Dictated By: Alyssa Manjarrez MD at 12/30/2017 1:41 PM Report E-Signed By: Alyssa Manjarrez MD at 12/30/2017 1:44 PM WSN:[email or web address]
--- NOTE | 2017-12-30 13:50 | RADIOLOGY IMAGING REPORT ---
FACILITY: [facility] PATIENT NAME: Latonya Chang : 1950 MR: [id number] V: [id number] EXAM DATE: ORDERING PHYSICIAN: SHIVANI PAREDES TECHNOLOGIST: Location: [facility] - [place] Patient: Latonya Chang : 1950 Visit/Account:[id number] Date of Sevice: 12/30/2017 Exam type: CHEST PA AND LAT History: chest pressure Comparison: October 24, 2017. Findings: There is hyperinflation of the lung chaparro. Chronic peribronchial thickening is noted bilaterally. There is no evidence of acute-appearing pulmonary consolidation pleural effusions or overt pulmonary edema. The cardiac silhouette is borderline enlarged. There are extensive spondylotic changes of th e thoracic spine IMPRESSION: 1. Hyperinflation lung chaparro Chronic peribronchial thickening bilaterally Report Dictated By: Alyssa Manjarrez MD at 12/30/2017 1:44 PM Report E-Signed By: Alyssa Manjarrez MD at 12/30/2017 1:45 PM WSN:[email or web address]
--- NOTE | 2017-12-30 14:00 | RADIOLOGY IMAGING REPORT ---
FACILITY: [facility] - [place] PATIENT NAME: Latonya Chang : 1950 MR: [id number] V: [id number] EXAM DATE: ORDERING PHYSICIAN: SHIVANI PAREDES TECHNOLOGIST: Location: [facility] Patient: Latonya Chang : 1950 Visit/Account:[id number] Date of Sevice: 12/30/2017 Exam type: SACROILIAC JOINTS 3 OR > VIEWS History: leg pain Comparison: Lumbar spine series April 30, 2013. Findings: There is mild sclerosis along the inferior third of both SI joints, left greater than right. This co uld be degenerative in nature possibly related to sacroiliitis. Incidentally noted are dense vascula r calcifications in the abdominal aorta and branch vessels IMPRESSION: 1. Mild sclerosis of the inferior third of the SI joints bilaterally which could be degenerative in nature or possibly related to sacroiliitis. Dense vascular calcifications Report Dictated By: Alyssa Manjarrez MD at 12/30/2017 1:52 PM Report E-Signed By: Alyssa Manjarrez MD at 12/30/2017 1:56 PM WSN:[email or web address]
--- NOTE | 2017-12-30 14:31 | RADIOLOGY IMAGING REPORT ---
FACILITY: [facility] - [place] PATIENT NAME: Latonya Chang : 1950 MR: [id number] V: [id number] EXAM DATE: ORDERING PHYSICIAN: SHIVANI PAREDES TECHNOLOGIST: Location: [facility] Patient: Latonya Chang : 1950 Visit/Account:[id number] Date of Sevice: 12/30/2017 EXAMINATION: Unilateral right lower extremity deep vein duplex Doppler ultrasound 12/30/2017 12:19 P M History: leg pain COMPARISON: Negative bilateral study 05/15/2012. I believe all subsequent studies have been of the lef t leg only. FINDINGS: Grayscale compression, duplex and color Doppler interrogation of the right lower extremity deep veins from common femoral vein to proximal calf was performed. The greater saphenous vein in the ipsilater al proximal thigh was evaluated using similar technique. Right lower extremity: Common femoral vein negative Femoral vein negative Deep femoral vein - negative Popliteal vein negative Visualized deep calf veins negative Greater saphenous vein in the proximal thigh negative Popliteal fossa: negative IMPRESSION: Negative right lower extremity evaluation for DVT Report Dictated By: Adam Shaw MD at 12/30/2017 2:23 PM Report E-Signed By: Adam Shaw MD at 12/30/2017 2:26 PM WSN:[email or web address]
[2017-12-30] MEDS ORDERED: KET10 PO (16:32)
[2017-12-30 16:51] VITALS: BP 141/80
== END 2017-12-30 16:40 | disposition home or self-care (01) ==
LOC: ER 11:38
DX: M46.1 Sacroiliitis, not elsewhere classified (principal)
CPT/HCPCS: 36415; 71046; 72050; 72202; 81001; 84484; 85025; 93005; 93971; 99285; A9270; 82040; 82247; 82310; 82374; 82435; 82565; 82947; 84075; 84132; 84155; 84295; 84450; 84460; 84520

== ENCOUNTER 2018-01-10 09:22 | Inpatient (IN) | payer MEDICARE ==
[2018-01-10] VITALS (9 sets, daily range): BP systolic 126–137; BP diastolic 56–69
[~2018-01-10] VITALS: Ht 152.4 cm; Wt 99.9 kg
[~2018-01-10 09:22] MED LIST changes: +KET10 PO; +MOM PO
--- NOTE | 2018-01-10 09:35 | ER Report ---
History and Physical Time Seen By MD: 09:35 HPI/ROS CHIEF COMPLAINT: abdominal pain HISTORY OF PRESENT ILLNESS: Patient is a 68-year-old female who presents emergency Department with 3-4 days worth of generalized abdominal pain with one episode of coffee-ground emesis this morning which prompted her visit. Patient states that she has a history of prior "stomach ulcer" but never had the actual source visualized for the bleeding. Patient is on Coumadin secondary to a PE that occurred 4 years ago. She reports nausea and lower abdominal pain currently is 8 out of 10 in intensity. Patient has prior history of appendectomy and cholecystectomy at a young age. She denies any fevers or chills. She denies chest pain or shortness of breath. She denies any black or tarry stools. There is no recent travel history or antibiotic use. Patient did vomit one time in the emergency department which was coffee-ground emesis. REVIEW OF SYSTEMS: Constitutional: No fever, no chills. Eyes: No discharge. ENT: No sore throat. Cardiovascular: No chest pain, no palpitations. Respiratory: No cough, no shortness of breath. Gastrointestinal: Abdominal pain, coffee-ground emesis Genitourinary: No hematuria. Musculoskeletal: No back pain. Skin: No rashes. Neurological: No headache. Allergies: Coded Allergies: Sulfa (Sulfonamide Antibiotics) (Verified Allergy, Mild, rash, 01/10/18) amoxicillin (Verified Allergy, Mild, rash, 01/10/18) erythromycin base (Verified Allergy, Mild, rash, 01/10/18) adhesive (Verified Allergy, Unknown, local reaction only if on for a long time, 01/10/18) Home Meds Active Scripts Ketorolac Tromethamine (KETOROLAC TROMETHAMINE) 10 Mg Tab, 10 MG PO Q6H, #20 TAB Prov:SHIVANI PAREDES CLAIM CLINICIAN 12/30/17 Fluoxetine Hcl (FLUOXETINE HCL) 10 Mg Capsule, 1 CAP PO QDAY, #60 CAPSULE 5 Refills Prov:FREDY EWING PHARMD 12/29/17 Pantoprazole Sodium (PANTOPRAZOLE SODIUM) 40 Mg Tablet., 1 TAB PO BID, #60 TAB 11 Refills Prov:YVETTE THOMAS MD 12/23/17 Ipratropium [place] (IPRATROPIUM BROMIDE) 0.2 Mg/1 Ml Solution, 500 MCG IH QID, #120 VIAL 5 Refills Prov:YVETTE THOMAS MD 12/12/17 Warfarin Sodium (WARFARIN SODIUM) 5 Mg Tablet, 10 MG PO QDAY, #60 TAB 4 Refills Prov:YVETTE THOMAS MD 12/12/17 Nystatin 100,000 Unit/Gm Top Powder (NYSTATIN 100,000 UNIT/GM TOP POWDER) 15 Gm Powder, 15 GM TP 2-3XD, #1 BOTTLE 1 Refill apply thin layer to affected area 2-3 times daily as needed until healed Prov:YVETTE THOMAS MD 10/21/17 Ipratropium [place] 17 Mcg/Act (ATROVENT HFA 17 MCG/ACT) 12.9 Gm Inh, 2 PUFF ASDIRECTED QID, #1 INH 5 Refills Prov:YVETTE THOMAS MD 09/05/17 Albuterol Sulfate (VENTOLIN HFA) 18 Gm Inh, 2 PUFF INH Q4H, #1 INH 5 Refills Prov:YVETTE THOMAS MD 09/03/17 Potassium Chloride (POTASSIUM CHLORIDE) 8 Meq Capsule.er, 1 CAP PO QODAY, #30 TAB 6 Refills Prov:JOSTIN CHO CLAIM CLINICIAN-BC, ONC 09/03/17 Sucralfate (SUCRALFATE) 1 Gm Tablet, 1 GM PO BID, #60 TAB 5 Refills Prov:YVETTE THOMAS MD 07/09/17 Montelukast Sodium (SINGULAIR) 10 Mg Tablet, 1 TAB PO QDAY, #90 TAB 1 Refill Prov:YVETTE THOMAS MD 03/29/15 Simvastatin (SIMVASTATIN) 20 Mg Tablet, 1 TAB PO HS, #30 TAB 11 Refills Prov:YVETTE THOMAS MD 04/26/14 Lisinopril (LISINOPRIL) 10 Mg Tablet, 1 TAB PO QDAY, #90 TAB 3 Refills Prov:YVETTE THOMAS MD 04/26/14 Reported Medications Magnesium Hydroxide (MILK OF MAGNESIA) 400 Mg/5 Ml Oral.susp, 4000 MG PO, BOTTLE 12/30/17 Multivitamin (ONE DAILY MULTIVITAMIN) 1 Each Tablet, 1 EACH PO DAILY 09/05/17 Denosumab (PROLIA) 60 Mg/1 Ml Injs, 60 MG SUBQ Q 6 MONTHS 11/20/16 Alprazolam (XANAX) 0.5 Mg Tablet, 1 TAB PO TID Y for ANXIETY, TAB 11/20/16 Oxygen (OXYGEN) Inha, 2.5 L INH HS, L and with C-PAP at hs, and prn shortness of breath 04/04/15 Cpap (CPAP HOME) Inha, HS with 2.5 liters oxygen 04/04/15 Pnv51/Iron Fum/Fa/Om-3/Dha/Epa ( MULTI + DHA SOFTGEL) 1 Each Capsule, 1 EACH PO QDAY, CAPSULE 10/27/14 Cholecalciferol (Vitamin D3) (VITAMIN D-3) 2,000 Unit Capsule, 2 CAP PO QDAY 10/27/14 Bimatoprost (LUMIGAN) 2.5 Ml Drops, 1 GTT OU HS 03/24/14 Past Medical/Surgical History Past medical history for breast cancer, type II diabetes, coronary artery disease, COPD, anemia, glaucoma, hypertension, gallbladder disease recently seen in the emergency department on December 30 diagnosed with sacroiliitis but also had multiple complaints at that time and had a cardiac workup which was negative. On Coumadin for history of PE that occurred 4 years ago Hx Smoking: Yes Smoking Status: Former Smoker Exposure to Second Hand Smoke?: Yes Hx Substance Use Disorder: Yes (SOMETIMES I SMOKE POT) Hx Alcohol Use: No Constitutional Vital Sign - Last 24 Hours 01/10/18 01/10/18 01/10/18 01/10/18 09:28 09:32 09:37 09:44 Temp 98.3 Pulse 101 99 Resp 16 B/P (MAP) 131/69 131/69 (89) Pulse Ox 93 93 O2 Delivery Nasal Cannula O2 Flow Rate 2.5 01/10/18 01/10/18 01/10/18 01/10/18 09:52 10:00 10:07 10:22 Pulse 96 91 B/P (MAP) 159/73 (101) Pulse Ox 93 89 93 01/10/18 01/10/18 01/10/18 01/10/18 10:30 10:37 10:45 10:52 Pulse 86 86 B/P (MAP) 98/81 (87) 110/50 (70) Pulse Ox 92 91 01/10/18 01/10/18 01/10/18 01/10/18 10:57 11:12 11:27 11:30 Pulse 86 86 B/P (MAP) 124/55 (78) Pulse Ox 91 92 90 Intake and Output 01/10/18 01/10/18 01/11/18 15:00 23:00 07:00 Intake Total 1100 ml Output Total 300 ml Balance 800 ml Physical Exam General/Constitutional: Patient is awake, alert, nontoxic and in no acute respiratory distress. Head: Normocephalic and atraumatic. Eyes: Conjunctival clear, Pupils are equal and reactive to light. Extraocular muscles are intact and symmetrical. Sclera are clear and anicteric. Ears:External canals are clear. Tympanic membranes are clear with normal landmarks and light reflex. Nares: No rhinorrhea or bleeding. Turbinates are pink and moist. Oropharyngeal: Mucous membranes are moist. Neck: Supple, no adenopathy. Cardiovascular: Heart is regular rate and rhythm without audible murmurs, rubs or gallops. Pulmonary: Lungs are clear to auscultation bilaterally. There are no wheezes, rales, or rhonchi. Chest rise is symmetrical Abdomen: Bilateral lower quadrant abdominal discomfort. Hyperactive bowel sounds. Extremities: No gross deformities, No peripheral cyanosis. Able to move all 4 extremities. Neuro: Alert and oriented X3, Skin: No rashes, skin is warm dry and well perfused. Medical Decision Making Data Points Result Diagram: 01/10/18 0941 01/10/18 0941 Laboratory Hematology Test 01/10/18 09:41 01/10/18 10:10 01/10/18 12:24 Red Blood Count 3.81 M/uL (4.17-5.56) Mean Corpuscular Volume 78.7 fL (80.0-96.0) Mean Corpuscular Hemoglobin 25.4 pg (26.0-33.0) Mean Corpuscular Hemoglobin Concent 32.3 g/dL (32.0-36.0) Red Cell Distribution Width 18.1 % (11.5-14.5) Mean Platelet Volume 9.5 fL (7.2-11.1) Neutrophils (%) (Auto) 68.8 % (39.4-72.5) Lymphocytes (%) (Auto) 22.7 % (17.6-49.6) Monocytes (%) (Auto) 7.2 % (4.1-12.4) Eosinophils (%) (Auto) 0.9 % (0.4-6.7) Basophils (%) (Auto) 0.4 % (0.3-1.4) Nucleated RBC Relative Count (auto) 0.0 /100WBC Neutrophils # (Auto) 5.5 K/uL (2.0-7.4) Lymphocytes # (Auto) 1.8 K/uL (1.3-3.6) Monocytes # (Auto) 0.6 K/uL (0.3-1.0) Eosinophils # (Auto) 0.1 K/uL (0.0-0.5) Basophils # (Auto) 0.0 K/uL (0.0-0.1) Nucleated RBC Absolute Count (auto) 0.00 K/uL Prothrombin Time 23.9 seconds (12.0-14.4) Prothromb Time International Ratio 2.11 Activated Partial Thromboplast Time 37 seconds (23-35) Sodium Level 141 mmol/L (137-145) Potassium Level 3.9 mmol/L (3.5-5.0) Chloride Level 104 mmol/L (98-107) Carbon Dioxide Level 22 mmol/L (22-31) Blood Urea Nitrogen 30 mg/dl (7-18) Creatinine 0.60 mg/dl (0.52-1.04) Glomerular Filtration Rate Calc > 60.0 Random Glucose 180 mg/dl (75-110) Calcium Level 8.9 mg/dl (8.4-10.2) Total Bilirubin 1.4 mg/dl (0.2-1.3) Aspartate Amino Transf (AST/SGOT) 36 U/L (0-35) Alanine Aminotransferase (ALT/SGPT) 26 U/L (0-56) Alkaline Phosphatase 45 U/L (0-126) Total Protein 6.6 g/dl (6.3-8.2) Albumin 3.4 g/dl (3.5-5.0) Lipase 99 U/L (23-300) Gastric Fluid pH 5-7 pH Gastric Fluid Occult Blood Positive (NEGATIVE) Urine Color Yellow Urine Clarity Clear Urine pH 5.0 pH (4.8-9.5) Urine Specific [place] 1.044 Urine Protein Negative mg/dL (NEGATIVE) Urine Glucose (UA) Negative mg/dL (NEGATIVE) Urine Ketones Trace mg/dL (NEGATIVE) Urine Blood Negative (NEGATIVE) Urine Nitrite Negative (NEGATIVE) Urine Bilirubin Negative (NEGATIVE) Urine Urobilinogen Negative mg/dL (0.2-1.9) Urine Leukocyte Esterase Negative (NEGATIVE) Urine RBC None /HPF (0-2/HPF) Urine WBC 1 /HPF (0-5/HPF) Urine Squamous Epithelial Cells Moderate /LPF (</=FEW) Urine Bacteria Negative /HPF (NONE-FEW) Urine Mucus Few /HPF (NONE-FEW) Chemistry Test 01/10/18 09:41 01/10/18 10:10 01/10/18 12:24 White Blood Count 8.0 k/uL (4.5-11.0) Red Blood Count 3.81 M/uL (4.17-5.56) Hemoglobin 9.7 g/dL (12.0-16.0) Hematocrit 30.0 % (34.0-47.0) Mean Corpuscular Volume 78.7 fL (80.0-96.0) Mean Corpuscular Hemoglobin 25.4 pg (26.0-33.0) Mean Corpuscular Hemoglobin Concent 32.3 g/dL (32.0-36.0) Red Cell Distribution Width 18.1 % (11.5-14.5) Platelet Count 138 K/uL (150-450) Mean Platelet Volume 9.5 fL (7.2-11.1) Neutrophils (%) (Auto) 68.8 % (39.4-72.5) Lymphocytes (%) (Auto) 22.7 % (17.6-49.6) Monocytes (%) (Auto) 7.2 % (4.1-12.4) Eosinophils (%) (Auto) 0.9 % (0.4-6.7) Basophils (%) (Auto) 0.4 % (0.3-1.4) Nucleated RBC Relative Count (auto) 0.0 /100WBC Neutrophils # (Auto) 5.5 K/uL (2.0-7.4) Lymphocytes # (Auto) 1.8 K/uL (1.3-3.6) Monocytes # (Auto) 0.6 K/uL (0.3-1.0) Eosinophils # (Auto) 0.1 K/uL (0.0-0.5) Basophils # (Auto) 0.0 K/uL (0.0-0.1) Nucleated RBC Absolute Count (auto) 0.00 K/uL Prothrombin Time 23.9 seconds (12.0-14.4) Prothromb Time International Ratio 2.11 Activated Partial Thromboplast Time 37 seconds (23-35) Glomerular Filtration Rate Calc > 60.0 Calcium Level 8.9 mg/dl (8.4-10.2) Total Bilirubin 1.4 mg/dl (0.2-1.3) Aspartate Amino Transf (AST/SGOT) 36 U/L (0-35) Alanine Aminotransferase (ALT/SGPT) 26 U/L (0-56) Alkaline Phosphatase 45 U/L (0-126) Total Protein 6.6 g/dl (6.3-8.2) Albumin 3.4 g/dl (3.5-5.0) Lipase 99 U/L (23-300) Gastric Fluid pH 5-7 pH Gastric Fluid Occult Blood Positive (NEGATIVE) Urine Color Yellow Urine Clarity Clear Urine pH 5.0 pH (4.8-9.5) Urine Specific [place] 1.044 Urine Protein Negative mg/dL (NEGATIVE) Urine Glucose (UA) Negative mg/dL (NEGATIVE) Urine Ketones Trace mg/dL (NEGATIVE) Urine Blood Negative (NEGATIVE) Urine Nitrite Negative (NEGATIVE) Urine Bilirubin Negative (NEGATIVE) Urine Urobilinogen Negative mg/dL (0.2-1.9) Urine Leukocyte Esterase Negative (NEGATIVE) Urine RBC None /HPF (0-2/HPF) Urine WBC 1 /HPF (0-5/HPF) Urine Squamous Epithelial Cells Moderate /LPF (</=FEW) Urine Bacteria Negative /HPF (NONE-FEW) Urine Mucus Few /HPF (NONE-FEW) Coagulation Test 01/10/18 09:41 Prothrombin Time 23.9 seconds Prothromb Time International Ratio 2.11 Activated Partial Thromboplast Time 37 seconds Urinalysis Test 01/10/18 12:24 Urine Color Yellow Urine Clarity Clear Urine pH 5.0 pH (4.8-9.5) Urine Specific [place] 1.044 Urine Protein Negative mg/dL (NEGATIVE) Urine Glucose (UA) Negative mg/dL (NEGATIVE) Urine Ketones Trace mg/dL (NEGATIVE) Urine Blood Negative (NEGATIVE) Urine Nitrite Negative (NEGATIVE) Urine Bilirubin Negative (NEGATIVE) Urine Urobilinogen Negative mg/dL (0.2-1.9) Urine Leukocyte Esterase Negative (NEGATIVE) Urine RBC None /HPF (0-2/HPF) Urine WBC 1 /HPF (0-5/HPF) Urine Squamous Epithelial Cells Moderate /LPF (</=FEW) Urine Bacteria Negative /HPF (NONE-FEW) Urine Mucus Few /HPF (NONE-FEW) EKG/Imaging Imaging FACILITY: [facility] - [place] PATIENT NAME: Latonya Chang : 1950 MR: [id number] V: [id number] EXAM DATE: ORDERING PHYSICIAN: PETER CURRY TECHNOLOGIST: Location: [facility] - [place] Patient: Latonya Chang : 1950 Visit/Account:[id number] Date of Sevice: 01/10/2018 EXAMINATION: Abdomen and pelvis CT with contrast HISTORY: Lower abdominal pain TECHNIQUE: CT was performed through the abdomen and pelvis following injection of iodinated intravenous contrast. Sagittal and coronal MPR reformatted images were generated. 75 mL isovue 370 injected. One of the following dose optimization techniques was utilized in the performance of this exam: automated exposure control; adjustment of the mA and/ or kV according to patient size; or use of iterative reconstruction technique. Specific details can be referenced in the facility's radiology CT exam operational policy. COMPARISON: August 29, 2017 FINDINGS: Lower chest: Normal. Spleen: Mild unchanged splenomegaly. Adrenal glands: Unchanged calcification within the left adrenal gland. Otherwise unremarkable. Pancreas: Normal. Kidneys: Normal. Gallbladder: Surgically absent. Liver: Unchanged cirrhotic appearing liver. Vessels: Aortoiliac calcified plaque potential severe stenosis of the left proximal common iliac artery is unchanged, axial image 86. Lymph node assessment: Normal. Bowel including small bowel, colon and appendix: Normal stomach, normal small bowel. Appendix not visualized. Chronic low attenuation within the right hemicolon wall as before. A few colonic diverticula, no acute colonic abnormality. Peritoneum / retroperitoneum / mesentery: Normal. Pelvic structures: Normal bladder, normal uterus and normal rectum. No pelvic fluid or adenopathy. Body wall: Normal. Musculoskeletal: Chronic unchanged T11 wedge compression deformity with unchanged associated sclerosis within the upper T11 vertebral body. IMPRESSION: 1. No acute finding. 2. Unchanged cirrhotic appearing liver. 3. Chronic unchanged T11 wedge compression deformity. 4. Potential severe unchanged stenosis of the left proximal common iliac artery secondary to atherosclerotic plaque. Report Dictated By: Randell Jeong MD at 01/10/2018 11:40 AM Report E-Signed By: Randell Jeong MD at 01/10/2018 11:47 AM WSN:[id number] FACILITY: [facility] - [place] PATIENT NAME: Latonya Chang : 1950 MR: [id number] V: [id number] EXAM DATE: ORDERING PHYSICIAN: PETER CURRY TECHNOLOGIST: Location: [facility] - [place] Patient: Latonya Chang : 1950 Visit/Account:[id number] Date of Sevice: 01/10/2018 KUB SINGLE VIEW ABDOMEN COMPARISONS: None. ADDITIONAL PERTINENT HISTORY: NG tube placement FINDINGS: Lung bases: Negative. Supine evidence of free air: None. Bowel gas pattern: NG tube with its tip in the proximal portion of the stomach. The side-port is at the level of the GE junction. This could be advanced proximally 5 cm for more optimal radiographic positioning. Otherwise negative Surrounding soft tissues and solid organs: Surgical clips in the right medial upper abdomen which may be related to previous cholecystectomy. Contrast within the urinary bladder and collecting systems likely related to recent CT. Osseous structures: Negative. IMPRESSION: 1. NG tube with its tip in the proximal portion of the stomach as detailed above. This could be advanced approximate 5 cm for more optimal radiographic positioning. Report Dictated By: Cisco Mcgill MD at 01/10/2018 11:58 AM Report E-Signed By: Cisco Mcgill MD at 01/10/2018 11:59 AM WSN:[id number] ED Course/Re-evaluation Clinical Indication for ER IV: Hydration, IV Access ED Course Patient with upper GI bleed. She is on Coumadin with an INR of 2.11. Case discussed with both Dr. Hartmann and ; Dr. Hartmann will be primary admission. Patient was given 80 units bolus of Protonix followed by drip at 8 mg per hour. She is typed and crossed now for 2 units of FFP and received 5 mg of vitamin K IM. She also has an NG tube in place to low intermittent suction. Return of approximately 200 mL of coffee-ground emesis no bright red blood Patient will be admitted to the floor with surgical consultation. I did speak with the patient's son, Tree Bishop [phone]; is where the patient will be admitted and asked that we call him with any significant updates. Decision to Disposition Date: Jan 10, 2018 Decision to Disposition Time: 13:27 Depart Departure Latest Vital Signs Vital Signs Date Time Temp Pulse Resp B/P (MAP) Pulse Ox O2 Delivery O2 Flow Rate FiO2 01/10/18 11:30 124/55 (78) 01/10/18 11:27 90 01/10/18 11:12 86 01/10/18 09:44 2.5 01/10/18 09:28 98.3 16 Nasal Cannula Impression: Primary Impression: Upper GI bleed Referrals: JOSTIN CHO CLAIM CLINICIAN-BC, ONC (PCP) PETER CURRY MD Jan 10, 2018 09:35
[2018-01-10] MEDS ORDERED: NS(*) 0.9% 1000 ML BAG 1,000 ML IV ONE (09:57)
[2018-01-10] MEDS ORDERED: MORPHINE 4 MG/ML SDV IVP ONE (10:00)
[2018-01-10] MEDS ORDERED: ONDANSETRON 4 MG/2 ML VIAL IVP ONE (10:00)
[2018-01-10 10:05] LABS: PLATELET COUNT, AUTOMATED 138 K/uL (150-450)
[2018-01-10] MEDS ORDERED: IOPAMIDOL 76% 100 ML INFUS BTL 100 ML ONE (10:08)
[2018-01-10] MEDS ORDERED: fentaNYL CITR 100 MCG/2 ML AMP IVP ONE (10:15)
[2018-01-10] MEDS ORDERED: PANTOPRAZOLE SOD(*)40 MG VIAL 80 MG in NS(*) 0.9% 100 ML BAG 100 ML IVPB ONE (10:20)
[2018-01-10] MEDS ORDERED: PANTOPRAZOLE SOD(*)40 MG VIAL 80 MG in NS(*) 0.9% 100 ML BAG 100 ML IV SCH (10:20)
--- NOTE | 2018-01-10 11:51 | RADIOLOGY IMAGING REPORT ---
FACILITY: [facility] - [place] PATIENT NAME: Latonya Chang : 1950 MR: [id number] V: [id number] EXAM DATE: ORDERING PHYSICIAN: PETER CURRY TECHNOLOGIST: Location: Patient: Latonya Chang : 1950 Visit/Account:[id number] Date of Sevice: 01/10/2018 EXAMINATION: Abdomen and pelvis CT with contrast HISTORY: Lower abdominal pain TECHNIQUE: CT was performed through the abdomen and pelvis following injection of iodinated intrave nous contrast. Sagittal and coronal MPR reformatted images were generated. 75 mL isovue 370 injected . One of the following dose optimization techniques was utilized in the performance of this exam: autom ated exposure control; adjustment of the mA and/or kV according to patient size; or use of iterative reconstruction technique. Specific details can be referenced in the facility's radiology CT exam ope rational policy. COMPARISON: August 29, 2017 FINDINGS: Lower chest: Normal. Spleen: Mild unchanged splenomegaly. Adrenal glands: Unchanged calcification within the left adrenal gland. Otherwise unremarkable. Pancreas: Normal. Kidneys: Normal. Gallbladder: Surgically absent. Liver: Unchanged cirrhotic appearing liver. Vessels: Aortoiliac calcified plaque potential severe stenosis of the left proximal common iliac sonia ry is unchanged, axial image 86. Lymph node assessment: Normal. Bowel including small bowel, colon and appendix: Normal stomach, normal small bowel. Appendix not vis ualized. Chronic low attenuation within the right hemicolon wall as before. A few colonic diverticula , no acute colonic abnormality. Peritoneum / retroperitoneum / mesentery: Normal. Pelvic structures: Normal bladder, normal uterus and normal rectum. No pelvic fluid or adenopathy. Body wall: Normal. Musculoskeletal: Chronic unchanged T11 wedge compression deformity with unchanged associated sclerosi s within the upper T11 vertebral body. IMPRESSION: 1. No acute finding. 2. Unchanged cirrhotic appearing liver. 3. Chronic unchanged T11 wedge compression deformity. 4. Potential severe unchanged stenosis of the left proximal common iliac artery secondary to atherosc lerotic plaque. Report Dictated By: Randell Jeong MD at 01/10/2018 11:40 AM Report E-Signed By: Randell Jeong MD at 01/10/2018 11:47 AM WSN:[id number]
--- NOTE | 2018-01-10 12:03 | RADIOLOGY IMAGING REPORT ---
FACILITY: [facility] - [place] PATIENT NAME: Latonya Chang : 1950 MR: [id number] V: [id number] EXAM DATE: ORDERING PHYSICIAN: PETER CURRY TECHNOLOGIST: Location: [facility] - [place] Patient: Latonya Chang : 1950 Visit/Account:[id number] Date of Sevice: 01/10/2018 KUB SINGLE VIEW ABDOMEN COMPARISONS: None. ADDITIONAL PERTINENT HISTORY: NG tube placement FINDINGS: Lung bases: Negative. Supine evidence of free air: None. Bowel gas pattern: NG tube with its tip in the proximal portion of the stomach. The side-port is at t he level of the GE junction. This could be advanced proximally 5 cm for more optimal radiographic pos itioning. Otherwise negative Surrounding soft tissues and solid organs: Surgical clips in the right medial upper abdomen which may be related to previous cholecystectomy. Contrast within the urinary bladder and collecting systems l ikely related to recent CT. Osseous structures: Negative. IMPRESSION: 1. NG tube with its tip in the proximal portion of the stomach as detailed above. This could be advan edilberto approximate 5 cm for more optimal radiographic positioning. Report Dictated By: Cisco Mcgill MD at 01/10/2018 11:58 AM Report E-Signed By: Cisco Mcgill MD at 01/10/2018 11:59 AM WSN:[id number]
[2018-01-10 12:31] LABS: INR 2.11
[2018-01-10] MEDS ORDERED: PHYTONADIONE 10 MG/ML AMP IM ONE (13:10)
--- NOTE | 2018-01-10 14:12 | RADIOLOGY IMAGING REPORT ---
FACILITY: [facility] - [place] PATIENT NAME: Latonya Chang : 1950 MR: [id number] V: [id number] EXAM DATE: ORDERING PHYSICIAN: PETER CURRY TECHNOLOGIST: Location: [facility] - [place] Patient: Latonya Chang : 1950 Visit/Account:[id number] Date of Sevice: 01/10/2018 KUB SINGLE VIEW ABDOMEN HISTORY: Line placement. COMPARISON: 01/10/2018 at 11:35 AM. FINDINGS: Supine abdominal radiograph. Lines/tubes: Interval advancement of the enteric tube which terminates in the proximal stomach. The side port is now below the diaphragm. Bowel gas pattern: Stable mild distention of the stomach. Soft tissues: Contrast in the urinary bladder. Bony structures: Negative. Visualized lung bases: Negative. IMPRESSION: Interval advancement of the enteric tube which terminates in the proximal stomach. The si de port is now below the diaphragm. Report Dictated By: Porter Enriquez MD at 01/10/2018 2:06 PM Report E-Signed By: Porter Enriquez MD at 01/10/2018 2:07 PM WSN:[id number]
[2018-01-10] MEDS ORDERED: MONT10TA PO (14:52)
[2018-01-10] MEDS ORDERED: NS(*) 0.9% 1000 ML BAG 1,000 ML IV PRN ×2 (14:57→20:52)
--- NOTE | 2018-01-10 15:35 | History & Physical ---
History of Present Illness History of Present Illness 68yo female with h/o GI bleed, DVT/PE, and COPD who came in to the ER for hematemesis. 2-3 days ago, she developed abdominal pain that progressively worsened, such that last night she was very uncomfortable. She had a hematemesis at 0700, so came to the ER. She was admitted a year ago for melena and anemia. She transfused 4 units of PRBC, but didn't have any more evidence of bleeding and her stool was negative for blood. She had no endoscoopy done but had an upper GI series that showed a hiatal hernia. She was placed on Protonix and Carafate and has done well since. In the ER, she was given 5mg of vitamin K. History Problems: (1) COPD (chronic obstructive pulmonary disease) Status: Chronic (2) Breast cancer Status: Chronic (3) Diabetes mellitus Onset Date: 04/04/2015 Status: Chronic (4) Cirrhosis of liver (5) Essential hypertension Status: Chronic (6) History of pulmonary embolism (7) Mixed hyperlipidemia Status: Chronic (8) Upper GI bleed Status: Acute Home Meds Active Scripts Montelukast Sodium (SINGULAIR) 10 Mg Tablet, 1 TAB PO HS, #90 TAB 1 Refill Prov:BHAVANA FINLEY MD 01/10/18 Fluoxetine Hcl (FLUOXETINE HCL) 10 Mg Capsule, 1 CAP PO QDAY, #60 CAPSULE 5 Refills Prov:FREDY EWING PHARMMyriam 12/29/17 Pantoprazole Sodium (PANTOPRAZOLE SODIUM) 40 Mg Tablet.dr, 1 TAB PO BID, #60 TAB 11 Refills Prov:YVETTE THOMAS MD 12/23/17 Ipratropium [place] (IPRATROPIUM BROMIDE) 0.2 Mg/1 Ml Solution, 500 MCG IH QID, #120 VIAL 5 Refills Prov:YVETTE THOMAS MD 12/12/17 Warfarin Sodium (WARFARIN SODIUM) 5 Mg Tablet, 10 MG PO QDAY, #60 TAB 4 Refills Prov:YVETTE THOMAS MD 12/12/17 Nystatin 100,000 Unit/Gm Top Powder (NYSTATIN 100,000 UNIT/GM TOP POWDER) 15 Gm Powder, 15 GM TP 2-3XD, #1 BOTTLE 1 Refill apply thin layer to affected area 2-3 times daily as needed until healed Prov:YVETTE THOMAS MD 10/21/17 Ipratropium [place] 17 Mcg/Act (ATROVENT HFA 17 MCG/ACT) 12.9 Gm Inh, 2 PUFF ASDIRECTED QID, #1 INH 5 Refills Prov:YVETTE THOMAS MD 09/05/17 Albuterol Sulfate (VENTOLIN HFA) 18 Gm Inh, 2 PUFF INH Q4H, #1 INH 5 Refills Prov:YVETTE THOMAS MD 09/03/17 Potassium Chloride (POTASSIUM CHLORIDE) 8 Meq Capsule.er, 1 CAP PO QODAY, #30 TAB 6 Refills Prov:JOSTIN CHO DIRECTOR TRANSLATION-BC, ONC 09/03/17 Sucralfate (SUCRALFATE) 1 Gm Tablet, 1 GM PO BID, #60 TAB 5 Refills Prov:YVETTE THOMAS MD 07/09/17 Simvastatin (SIMVASTATIN) 20 Mg Tablet, 1 TAB PO HS, #30 TAB 11 Refills Prov:YVETTE THOMAS MD 04/26/14 Lisinopril (LISINOPRIL) 10 Mg Tablet, 1 TAB PO QDAY, #90 TAB 3 Refills Prov:YVETTE THOMAS MD 04/26/14 Reported Medications Magnesium Hydroxide (MILK OF MAGNESIA) 400 Mg/5 Ml Oral.susp, 4000 MG PO, BOTTLE 12/30/17 Multivitamin (ONE DAILY MULTIVITAMIN) 1 Each Tablet, 1 EACH PO DAILY 09/05/17 Denosumab (PROLIA) 60 Mg/1 Ml Injs, 60 MG SUBQ Q 6 MONTHS 11/20/16 Oxygen (OXYGEN) Inha, 2.5 L INH HS, L and with C-PAP at hs, and prn shortness of breath 04/04/15 Cpap (CPAP HOME) Inha, HS with 2.5 liters oxygen 04/04/15 Pnv51/Iron Fum/Fa/Om-3/Dha/Epa ( MULTI + DHA SOFTGEL) 1 Each Capsule, 1 EACH PO QDAY, CAPSULE 10/27/14 Cholecalciferol (Vitamin D3) (VITAMIN D-3) 2,000 Unit Capsule, 2 CAP PO QDAY 10/27/14 Bimatoprost (LUMIGAN) 2.5 Ml Drops, 1 GTT OU HS 03/24/14 Discontinued Reported Medications Alprazolam (XANAX) 0.5 Mg Tablet, 1 TAB PO TID Y for ANXIETY, TAB 11/20/16 Discontinued Scripts Ketorolac Tromethamine (KETOROLAC TROMETHAMINE) 10 Mg Tab, 10 MG PO Q6H, #20 TAB Prov:SHIVANI PAREDES DIRECTOR TRANSLATION 12/30/17 Allergies: Coded Allergies: Sulfa (Sulfonamide Antibiotics) (Verified Allergy, Mild, rash, 01/10/18) amoxicillin (Verified Allergy, Mild, rash, 01/10/18) erythromycin base (Verified Allergy, Mild, rash, 01/10/18) adhesive (Verified Allergy, Unknown, local reaction only if on for a long time, 01/10/18) morphine (Verified Adverse Reaction, Unknown, vomiting, 01/10/18) Patient History: Essential hypertension FATHER (Myocardial Infarction; Hypertension), , Age:82 BROTHER OR SISTER (Prostate Cancer; Hypertension), Age:73 FH: COPD (chronic obstructive pulmonary disease) MOTHER (COPD), , Age:82 FH: glaucoma Maternal Grandfather (Glaucoma), FH: hypertension FH: myocardial infarction FATHER (Myocardial Infarction; Hypertension), , Age:82 FH: non-Hodgkin's lymphoma Maternal Uncle, FH: prostate cancer BROTHER OR SISTER (Prostate Cancer; Hypertension), Age:73 FH: stomach cancer Maternal Grandmother (Stomach Cancer), , Age:Unknown FH: stroke Paternal Grandfather (Stroke;CVA), Other Social/Family Hx Retired. . Remote tobacco use (quit in 1994) Hx Smoking: Yes Smoking Status: Former Smoker Exposure to Second Hand Smoke?: Yes Caffeine Intake: Coffee, Soda Caffeine/Cups Per Day: 3 CUPS/DAY Hx Alcohol Use: No Hx Substance Use Disorder: Yes (SOMETIMES I SMOKE POT) Social Drug Use: Currently Social Drugs: Marijuana Amount Of Social Drug/s Used: HISTORY OF USE Review of Systems All Systems Reviewed/Normal: Yes, Except as Noted Exam Vital Signs Vital Signs Date Time Temp Pulse Resp B/P (MAP) Pulse Ox O2 Delivery O2 Flow Rate FiO2 01/10/18 14:24 98.6 90 16 136/66 (89) 92 Nasal Cannula 3.0 General Appearance: Alert, Awake, No Acute Distress Neuro: No Gross deficits Eyes: PERRLA ENT: Moist Mucous Membranes Cardiovascular: Regular Rate and Rhythm (2/6 systolic murmur) Respiratory: Clear to Auscultation (Decreased BS in bases bilaterally) GI: Abd Soft and Non-Tender Integumentary: No Jaundice, No Cyanosis Medical Decision Making Data Points Result Diagram: 01/10/18 0941 01/10/18 0941 Item Value Date Time Hemoglobin 9.7 g/dL L 01/10/18 0941 Hemoglobin 11.8 g/dL L 12/30/17 1247 Mean Corpuscular Volume 79.6 fL L 12/30/17 1247 Mean Corpuscular Volume 78.7 fL L 01/10/18 0941 Mean Corpuscular Volume 80.4 fL 12/16/17 1705 Hemoglobin 12.2 g/dL 12/16/17 1705 Platelet Count 81 K/uL L 12/16/17 1705 Platelet Count 89 K/uL L 12/30/17 1247 Platelet Count 138 K/uL L 01/10/18 0941 Prothromb Time International Ratio 2.11 01/10/18 0941 Total Bilirubin 1.4 mg/dl H 01/10/18 0941 Aspartate Amino Transf (AST/SGOT) 36 U/L H 01/10/18 0941 Alanine Aminotransferase (ALT/SGPT) 26 U/L 01/10/18 0941 Urine WBC 1 /HPF 01/10/18 1224 Urine Squamous Epithelial Cells Moderate /LPF H 01/10/18 1224 Urine Bacteria Negative /HPF 01/10/18 1224 Gastric Fluid Occult Blood Positive H 01/10/18 1010 EKG / Imaging Imaging KUB - Interval advancement of the enteric tube which terminates in the proximal stomach. The side port is now below the diaphragm Assessment and Plan Problems: (1) Upper GI bleed Status: Acute Assessment & Plan: She presented with 2-3 days of abdominal pain and hematemesis x2 today. Hgb is decreased over the last couple weeks. BP/P are stable. NG has no more output, so will remove. She is already on Protonix bid and Carafate bid for a presumed GI bleed a year ago. The bleeding is exacerbated by warfarin use. Dr. Simmons is going to see her this evening. She is NPO and getting reversal of warfarin. See below. CBC/INR in a couple of hours. Getting IV Protonix q12h. (2) PE (pulmonary thromboembolism) Status: Chronic Assessment & Plan: She had bilateral PE in April of 2012 and then 2 different DVT's since then while on Warfarin. She is therapeutic. She has received vitamin K 5mg in the ER and is going to get 2 units of FFP. If a source of bleeding cannot be found then need to consider an IVC filter. (3) T2DM (type 2 diabetes mellitus) Status: Chronic Assessment & Plan: Appears to be diet controlled. Q6 hour glucose with SSI to cover. (4) COPD (chronic obstructive pulmonary disease) Status: Chronic Assessment & Plan: Lungs are clear, but she usually on wears O2 at night. Now requiring 3 liters. Will continue scheduled ipratropium neb. Holding Singulair. (5) Mixed hyperlipidemia Status: Chronic Assessment & Plan: Hold simvastatin. (6) Essential hypertension Status: Chronic Assessment & Plan: Hold lisinopril for now. (7) Depression Status: Chronic Assessment & Plan: Hold fluoxetine for now. Copies to: JOSTIN CHO DIRECTOR TRANSLATION-BC, ONC Venous Thromboembolism Antithrombotics Is Pt On Any Antithrombotics?: Yes Prophylaxis Tx Contraindicated Pharmacological Contraindicati: Active Bleeding Exam Sepsis Risk: No Definite Risk BHAVANA FINLEY MD Jan 10, 2018 15:35
[2018-01-10] MEDS ORDERED: METF-411 PO (15:56)
[2018-01-10] MEDS ORDERED: ALBU8.5H IH (15:56)
[2018-01-10] MEDS ORDERED: MAGN250T34 PO (15:56)
[2018-01-10] MEDS ORDERED: PANTOPRAZOLE SOD(*)40 MG VIAL 80 MG in NS(*) 0.9% 100 ML BAG 100 ML IV ONE (16:00)
[2018-01-10] MEDS: IPRATROPIUM 0.5MG/2.5ML NEB NEB SCH (17:24)
--- NOTE | 2018-01-10 17:57 | General Surgery Consultation ---
History of Present Illness Requesting Physician Dr. Finley Reason for Consult Hematemesis Chief Complaint Hematemesis History of Present Illness 68yo female presents with 1 episode of hematemesis today that brought her in to the ER for evaluation. She then had a second episode of hematemesis in the ER that was witnessed. She reports having about 4-5 melanotic stools over the last 3-4 days. No abdominal pain, lightheadedness, or dizziness. No previous h /o PUD. She took a couple of aspirins a few days ago for a headache but she normally doesn't take NSAIDS. Of note, upon reviewing her medical record, it appears that she was started on ketorolac 11 days ago for "leg pain." History Home Meds Active Scripts Montelukast Sodium (SINGULAIR) 10 Mg Tablet, 1 TAB PO HS, #90 TAB 1 Refill Prov:BHAVANA FINLEY MD 01/10/18 Fluoxetine Hcl (FLUOXETINE HCL) 10 Mg Capsule, 1 CAP PO QDAY, #60 CAPSULE 5 Refills Prov:FREDY EWING PHARMD 12/29/17 Pantoprazole Sodium (PANTOPRAZOLE SODIUM) 40 Mg Tablet.dr, 1 TAB PO BID, #60 TAB 11 Refills Prov:YVETTE THOMAS MD 12/23/17 Warfarin Sodium (WARFARIN SODIUM) 5 Mg Tablet, 10 MG PO QDAY, #60 TAB 4 Refills Prov:YVETTE THOMAS MD 12/12/17 Ipratropium [place] 17 Mcg/Act (ATROVENT HFA 17 MCG/ACT) 12.9 Gm Inh, 2 PUFF ASDIRECTED QID, #1 INH 5 Refills Prov:YVETTE THOMAS MD 09/05/17 Albuterol Sulfate (VENTOLIN HFA) 18 Gm Inh, 2 PUFF INH Q4H, #1 INH 5 Refills Prov:YVETTE THOMAS MD 09/03/17 Potassium Chloride (POTASSIUM CHLORIDE) 8 Meq Capsule.er, 1 CAP PO QODAY, #30 TAB 6 Refills Prov:JOSTIN CHO [employer]CREENING [employer] SUPERVISOR-BC, ONC 09/03/17 Sucralfate (SUCRALFATE) 1 Gm Tablet, 1 GM PO BID, #60 TAB 5 Refills Prov:YVETTE THOMAS MD 07/09/17 Simvastatin (SIMVASTATIN) 20 Mg Tablet, 1 TAB PO HS, #30 TAB 11 Refills Prov:YVETTE THOMAS MD 04/26/14 Lisinopril (LISINOPRIL) 10 Mg Tablet, 1 TAB PO QDAY, #90 TAB 3 Refills Prov:YVETTE THOMAS MD 04/26/14 Reported Medications Albuterol Sulfate 90 Mcg/Act (PROAIR HFA 90 MCG/ACT) 8.5 Gm Hfa.aer.ad, 1-2 PUFF IH 3-4XD Y for SHORTNESS OF BREATH, INHALER 01/10/18 Metformin Hcl (METFORMIN HCL) 500 Mg Tablet, 1 TAB PO TID, TAB 01/10/18 Magnesium Oxide (MAGNESIUM) 250 Mg Tablet, 250 MG PO QDAY 01/10/18 Multivitamin (ONE DAILY MULTIVITAMIN) 1 Each Tablet, 1 EACH PO DAILY 09/05/17 Denosumab (PROLIA) 60 Mg/1 Ml Injs, 60 MG SUBQ Q 6 MONTHS 11/20/16 Oxygen (OXYGEN) Inha, 2.5 L INH HS, L and with C-PAP at hs, and prn shortness of breath 04/04/15 Cpap (CPAP HOME) Inha, HS with 2.5 liters oxygen 04/04/15 Cholecalciferol (Vitamin D3) (VITAMIN D-3) 2,000 Unit Capsule, 2 CAP PO QDAY 10/27/14 Bimatoprost (LUMIGAN) 2.5 Ml Drops, 1 GTT OU HS 03/24/14 Discontinued Reported Medications Magnesium Hydroxide (MILK OF MAGNESIA) 400 Mg/5 Ml Oral.susp, 4000 MG PO, BOTTLE 12/30/17 Alprazolam (XANAX) 0.5 Mg Tablet, 1 TAB PO TID Y for ANXIETY, TAB 11/20/16 Pnv51/Iron Fum/Fa/Om-3/Dha/Epa ( MULTI + DHA SOFTGEL) 1 Each Capsule, 1 EACH PO QDAY, CAPSULE 10/27/14 Discontinued Scripts Ketorolac Tromethamine (KETOROLAC TROMETHAMINE) 10 Mg Tab, 10 MG PO Q6H, #20 TAB Prov:SHIVANI PAREDES [employer]ING [employer] SCREENING [employer]ANT SUPERVISOR 12/30/17 Ipratropium [place] (IPRATROPIUM BROMIDE) 0.2 Mg/1 Ml Solution, 500 MCG IH QID, #120 VIAL 5 Refills Prov:YVETTE THOMAS MD 12/12/17 Nystatin 100,000 Unit/Gm Top Powder (NYSTATIN 100,000 UNIT/GM TOP POWDER) 15 Gm Powder, 15 GM TP 2-3XD, #1 BOTTLE 1 Refill apply thin layer to affected area 2-3 times daily as needed until healed Prov:YVETTE THOMAS MD 10/21/17 Allergies: Coded Allergies: Sulfa (Sulfonamide Antibiotics) (Verified Allergy, Mild, rash, 01/10/18) amoxicillin (Verified Allergy, Mild, rash, 01/10/18) erythromycin base (Verified Allergy, Mild, rash, 01/10/18) adhesive (Verified Allergy, Unknown, local reaction only if on for a long time, 01/10/18) morphine (Verified Adverse Reaction, Unknown, vomiting, 01/10/18) Family History: Essential hypertension FATHER (Myocardial Infarction; Hypertension), , Age:82 BROTHER OR SISTER (Prostate Cancer; Hypertension), Age:73 FH: COPD (chronic obstructive pulmonary disease) MOTHER (COPD), , Age:82 FH: glaucoma Maternal Grandfather (Glaucoma), FH: hypertension FH: myocardial infarction FATHER (Myocardial Infarction; Hypertension), , Age:82 FH: non-Hodgkin's lymphoma Maternal Uncle, FH: prostate cancer BROTHER OR SISTER (Prostate Cancer; Hypertension), Age:73 FH: stomach cancer Maternal Grandmother (Stomach Cancer), , Age:Unknown FH: stroke Paternal Grandfather (Stroke;CVA), Review of Systems All Systems Reviewed/Normal: Yes, Except as Noted Gastrointestinal: Hematemesis, Melena Exam Vital Signs Vital Signs Date Time Temp Pulse Resp B/P (MAP) Pulse Ox O2 Delivery O2 Flow Rate FiO2 01/10/18 17:25 75 18 01/10/18 17:20 96 Nasal Cannula 2.0 01/10/18 16:49 98.2 137/58 General Appearance: Alert, Awake, No Acute Distress, Afebrile Neuro: No Gross deficits Eyes: PERRLA GI: Abd Soft and Non-Tender Extremities: Warm, Perfused Medical Decision Making Data Points Result Diagram: 01/10/18 0941 01/10/18 0941 Assessment and Plan Problems: (1) Upper GI bleed Status: Acute Assessment & Plan: 01/10/18: Pt is admitted to the Hospitalist Service. I suspect she has a peptic ulcer, possibly related to toradol she was recently using for leg pain. She is on PPI gtt. She has received 2U of FFP. Will follow H/H and INR. No signs of active bleeding currently and her vitals are stable. Will plan on EGD in the morning. Will need to avoid all NSAIDS and other blood thinners. She can restart coumadin when source of bleeding confirmed and that there's no active bleeding and she's been on appropriate for a few days without further evidence of bleeding. This plan has been explained to her as well as EGD with alternatives, risks, recovery, questions answered, pt would like to proceed with this plan. (2) Anemia due to GI blood loss Status: Acute Condition Stable. Time Spent: < 30 min Venous Thromboembolism Antithrombotics Is Pt On Any Antithrombotics?: Yes MAZIN LOERA MD Jan 10, 2018 17:57
[2018-01-10 19:16] LABS: PLATELET COUNT, AUTOMATED 79 K/uL (150-450)
[2018-01-10] MEDS ORDERED: FUROSEMIDE 20 MG/2 ML VIAL IVP ONE (19:30)
[2018-01-10 20:07] LABS: INR 1.78
--- NOTE | 2018-01-10 20:12 | EKG ---
FACILITY: [facility] - [place] PATIENT NAME: GUILLE GRANT : [id number] MR: [id number] V: [id number] EXAM DATE: ORDERING PHYSICIAN: MAZIN BOWERS TECHNOLOGIST: MAYDA Test Reason : PRE-OP Blood Pressure : / mmHG Vent. Rate : 086 BPM Atrial Rate : 086 BPM P-R Int : 122 ms QRS Dur : 078 ms QT Int : 378 ms P-R-T Axes : 036 060 -87 degrees QTc Int : 452 ms Normal sinus rhythm Low voltage QRS T wave abnormality, consider inferolateral ischemia Abnormal ECG When compared with ECG of 30-DEC-2017 12:30, Previous ECG has undetermined rhythm, needs review T wave inversion now evident in Inferior leads T wave inversion now evident in Anterolateral leads Confirmed by BHAVANA FINLEY ([id number]) on 01/10/2018 8:39:17 PM Referred By: ROBINSON Confirmed By:BHAVANA FINLEY
[2018-01-10] MEDS: BIMATOPROST 2.5 ML BTL 2.5 ML BTL OU SCH (20:50)
[2018-01-11] VITALS (8 sets, daily range): BP systolic 117–135; BP diastolic 56–69; Ht 152.4 cm; Wt 99.9 kg
[2018-01-11] MEDS: INSULIN HUM LISPRO 100 UN/ML 3 ML VIAL SUBQ PRN (00:30)
[2018-01-11] MEDS: IPRATROPIUM 0.5MG/2.5ML NEB NEB SCH ×3 (06:15→17:04)
[2018-01-11] MEDS ORDERED: NORMOSOL R SOLN(*) 1000 ML BAG 1,000 ML IV ONE (06:26)
--- NOTE | 2018-01-11 06:29 | EKG ---
FACILITY: [facility] PATIENT NAME: GUILLE GRANT : [id number] MR: [id number] V: [id number] EXAM DATE: ORDERING PHYSICIAN: BHAVANA FINLEY TECHNOLOGIST: MAYDA Test Reason : Blood Pressure : / mmHG Vent. Rate : 073 BPM Atrial Rate : 073 BPM P-R Int : 130 ms QRS Dur : 080 ms QT Int : 450 ms P-R-T Axes : 051 073 036 degrees QTc Int : 495 ms Normal sinus rhythm Poor R wave progression anteriorly Abnormal ECG When compared with ECG of 10-JAN-2018 19:54, Nonspecific T wave abnormality has replaced inverted T waves in Lateral leads Confirmed by MARIA ANTONIA CHRISTIE ([id number]) on 01/11/2018 10:23:45 PM Referred By: Confirmed By:MARIA ANTONIA CHRITSIE
[2018-01-11 06:36] LABS: PLATELET COUNT, AUTOMATED 76 K/uL (150-450)
[2018-01-11 06:47] LABS: INR 1.72
--- NOTE | 2018-01-11 07:38 | General Surgery Progress Note ---
Subjective Progress Notes Subjective No complaints this morning. No further episodes of hematemesis, no melena or any BMs at all. No abdominal pain. Physical Exam Vital Signs Date Time Temp Pulse Resp B/P (MAP) Pulse Ox O2 Delivery O2 Flow Rate FiO2 01/11/18 06:23 72 16 01/11/18 06:14 96 Nasal Cannula 01/11/18 03:01 98.4 126/64 (84) 2.0 General Appearance: Alert, Awake, No Acute Distress, Afebrile GI: Soft and Non-Tender Extremities: Warm, Perfused Result Diagram: 01/11/18 0557 01/11/18 0557 Assessment and Plan Problems: (1) Upper GI bleed Status: Acute Assessment & Plan: 01/10/18: Pt is admitted to the Hospitalist Service. I suspect she has a peptic ulcer, possibly related to toradol she was recently using for leg pain. She is on PPI gtt. She has received 2U of FFP. Will follow H/H and INR. No signs of active bleeding currently and her vitals are stable. Will plan on EGD in the morning. Will need to avoid all NSAIDS and other blood thinners. She can restart coumadin when source of bleeding confirmed and that there's no active bleeding and she's been on appropriate for a few days without further evidence of bleeding. This plan has been explained to her as well as EGD with alternatives, risks, recovery, questions answered, pt would like to proceed with this plan. 01/11/18: Doing well. No evidence of further GI bleeding. Will plan on EGD this morning to confirm UGI cause. Pt agreeable with this plan. (2) Anemia due to GI blood loss Status: Acute Condition Stable. Time Spent: < 30 min Exam Sepsis Risk: No Definite Risk MAZIN LOERA MD Jan 11, 2018 07:38
[2018-01-11] MEDS ORDERED: PROPOFOL EMUL(*) 10MG/ML 20 ML 40 ML ONE (07:50)
[2018-01-11] MEDS ORDERED: GLYCOPYRROLATE 0.2MG/ML 1 ML INJ ONE (07:52)
[2018-01-11] MEDS: PANTOPRAZOLE SOD 40 MG IV VIAL IVP SCH ×2 (09:47→21:36)
--- NOTE | 2018-01-11 13:10 | Hospitalist Progress Note ---
Subjective Progress Notes Subjective No new complaints. Physical Exam Vital Signs Date Time Temp Pulse Resp B/P (MAP) Pulse Ox O2 Delivery O2 Flow Rate FiO2 01/11/18 11:24 98.8 71 135/69 (91) 93 01/11/18 10:53 16 01/11/18 10:48 Nasal Cannula 2.0 Intake and Output 01/12/18 07:00 Intake Total 600 ml Balance 600 ml IV Total 600 ml # Voids 1 # Bowel Movements 1 General Appearance: Alert, Awake, No Acute Distress Cardiovascular: Regular Rate and Rhythm Respiratory: Clear to Auscultation GI: Other (Some epigastric tenderness to palption without palpable mass.) Extremities: Warm, Perfused Psych: Appropriate Mood & Affect Result Diagram: 01/11/1857 01/11/18 05 Assessment and Plan Problems: (1) Upper GI bleed Status: Acute Assessment & Plan: She presented with 2-3 days of abdominal pain and hematemesis x2 today. Hgb is decreased over the last couple weeks. BP/P are stable. NG has been removed. She is already on Protonix bid and Carafate bid for a presumed GI bleed a year ago. The bleeding is exacerbated by warfarin use. Dr. Simmons is planning to scope her this am. She is NPO and getting reversal of warfarin. See below. Hemoglobin improved after 2u PRBCs. Getting IV Protonix q12h. (2) PE (pulmonary thromboembolism) Status: Chronic Assessment & Plan: She had bilateral PE in April of 2012 and then 2 different DVT's since then while on Warfarin. She is therapeutic. She has received vitamin K 5mg in the ER and is going to get 2 units of FFP. If a source of bleeding cannot be found then need to consider an IVC filter. (3) T2DM (type 2 diabetes mellitus) Status: Chronic Assessment & Plan: Appears to be diet controlled. Q6 hour glucose with SSI to cover. (4) COPD (chronic obstructive pulmonary disease) Status: Chronic Assessment & Plan: Lungs are clear, but she usually on wears O2 at night. Now requiring 3 liters. Will continue scheduled ipratropium neb. Holding Singulair. (5) Mixed hyperlipidemia Status: Chronic Assessment & Plan: Hold simvastatin. (6) Essential hypertension Status: Chronic Assessment & Plan: Hold lisinopril for now. (7) Depression Status: Chronic Assessment & Plan: Hold fluoxetine for now. Time Spent on Plan of Care: < 30 min Exam Sepsis Risk: No Definite Risk MARIA ANTONIA MCLAUGHLIN MD Jan 11, 2018 13:09
[2018-01-11] MEDS: BIMATOPROST 2.5 ML BTL 2.5 ML BTL OU SCH (21:36)
[2018-01-11] MEDS ORDERED: IPRATROPIUM 0.5MG/2.5ML NEB NEB PRN (23:25)
[2018-01-12] MEDS: ACETAMINOPHEN 500 MG TAB PO PRN (00:42)
[2018-01-12] MEDS: IPRATROPIUM 0.5MG/2.5ML NEB NEB SCH ×3 (05:29→17:04)
[2018-01-12 06:09] LABS: PLATELET COUNT, AUTOMATED 59 K/uL (150-450)
--- NOTE | 2018-01-12 07:54 | General Surgery Progress Note ---
Subjective Progress Notes Subjective No complaints. She's had a couple of BMs. They're "dark". She thinks they're dark brown and not maroon and no bright red blood. Physical Exam Vital Signs Date Time Temp Pulse Resp B/P (MAP) Pulse Ox O2 Delivery O2 Flow Rate FiO2 01/12/18 05:38 66 16 01/12/18 05:30 96 Nasal Cannula 2.0 01/11/18 23:17 98.1 119/60 (79) General Appearance: Alert, Awake, No Acute Distress, Afebrile GI: Soft and Non-Tender (Some TTP to left of xyphoid on bottom of left 10th rib ) Extremities: Warm, Perfused Result Diagram: 01/12/1851901/12/18 05 Assessment and Plan Problems: (1) Upper GI bleed Status: Acute Assessment & Plan: 01/10/18: Pt is admitted to the Hospitalist Service. I suspect she has a peptic ulcer, possibly related to toradol she was recently using for leg pain. She is on PPI gtt. She has received 2U of FFP. Will follow H/H and INR. No signs of active bleeding currently and her vitals are stable. Will plan on EGD in the morning. Will need to avoid all NSAIDS and other blood thinners. She can restart coumadin when source of bleeding confirmed and that there's no active bleeding and she's been on appropriate for a few days without further evidence of bleeding. This plan has been explained to her as well as EGD with alternatives, risks, recovery, questions answered, pt would like to proceed with this plan. 01/11/18: Doing well. No evidence of further GI bleeding. Will plan on EGD this morning to confirm UGI cause. Pt agreeable with this plan. 01/12/18: Doing well. I don't think she's actively bleeding but H/H down a little. Will need to follow this until stable and if it continues to drop then will need further workup. No signs of active bleeding on EGD but she had a couple of small esophageal ulcers. Will follow. (2) Anemia due to GI blood loss Status: Acute Condition Stable. Time Spent: < 30 min Exam Sepsis Risk: No Definite Risk MAZIN LOERA MD Jan 12, 2018 07:54
[2018-01-12 08:00] VITALS: BP 116/60
[2018-01-12] MEDS: SUCRALFATE 1 GM TAB PO SCH ×4 (08:12→21:24)
[2018-01-12] MEDS: PANTOPRAZOLE SOD 40 MG TABEC PO SCH ×2 (09:18→21:24)
--- NOTE | 2018-01-12 10:23 | Hospitalist Progress Note ---
Subjective Progress Notes Subjective This patient was admitted for GI bleeding. She had no acute events overnight. Patient Complains of: Cardiovascular: No: Chest Pain Respiratory: No: Shortness of Breath Physical Exam Vital Signs Date Time Temp Pulse Resp B/P (MAP) Pulse Ox O2 Delivery O2 Flow Rate FiO2 01/12/18 08:14 81 01/12/18 08:00 97.9 68 18 116/60 (78) Nasal Cannula 2.0 Intake and Output 01/13/18 07:00 # Bowel Movements 1 Cardiovascular: Regular Rate and Rhythm Respiratory: Clear to Auscultation Result Diagram: 01/12/1851901/12/18519 Assessment and Plan Problems: (1) Upper GI bleed Status: Acute Assessment & Plan: She presented with 2-3 days of abdominal pain and hematemesis. Dr. Crespo did perform an endoscopy yesterday. She was noted to have esophageal ulcers, but no active bleeding. She is on treatment with Protonix and Carafate. Dr. Crespo did recommend that she remain off the warfarin for one week. (2) Anemia due to GI blood loss Status: Acute Assessment & Plan: She did receive 2 units of red cells and 2 units of FFP. (3) PE (pulmonary thromboembolism) Status: Chronic Assessment & Plan: She had bilateral PE in April of 2012 and then 2 different DVT's since then while on Warfarin. She did require reversal with vitamin K and FFP. Her warfarin remains on hold as above. (4) T2DM (type 2 diabetes mellitus) Status: Chronic Assessment & Plan: She is on chronic treatment with metformin, which remains on hold. She is receiving sliding scale level #2 coverage. (5) COPD (chronic obstructive pulmonary disease) Status: Chronic Assessment & Plan: She is on chronic treatment with albuterol, Atrovent, and Singulair. (6) Mixed hyperlipidemia Status: Chronic Assessment & Plan: She is on chronic treatment with simvastatin. (7) Essential hypertension Status: Chronic Assessment & Plan: She is on chronic treatment with lisinopril, which is currently on hold. (8) Depression Status: Chronic Assessment & Plan: She is on chronic treatment with fluoxetine, which is currently on hold. Exam Sepsis Risk: No Definite Risk MAZIN GRIJALVA DO Jan 12, 2018 10:23
[2018-01-12 10:56] VITALS: BP 118/57
[2018-01-12] MEDS: INSULIN HUM LISPRO 100 UN/ML 3 ML VIAL SUBQ PRN ×3 (12:30→21:38)
[2018-01-12 15:07] VITALS: BP 143/77
[2018-01-12 19:26] VITALS: BP 116/49
[2018-01-12] MEDS: BIMATOPROST 2.5 ML BTL 2.5 ML BTL OU SCH (21:24)
[2018-01-12 22:57] VITALS: BP 134/72
[2018-01-13] MEDS: IPRATROPIUM 0.5MG/2.5ML NEB NEB SCH ×2 (00:37→05:06)
[2018-01-13 03:08] VITALS: BP 141/62
[2018-01-13] MEDS: SUCRALFATE 1 GM TAB PO SCH ×2 (05:24→11:09)
[2018-01-13] MEDS: ACETAMINOPHEN 500 MG TAB PO PRN (05:24)
[2018-01-13 06:27] LABS: PLATELET COUNT, AUTOMATED 55 K/uL (150-450)
[2018-01-13 07:44] VITALS: BP 131/60
[2018-01-13] MEDS: INSULIN HUM LISPRO 100 UN/ML 3 ML VIAL SUBQ PRN ×2 (08:02→11:47)
[2018-01-13] MEDS ORDERED: FERROUS SULFATE 325 MG TAB PO SCH (08:35)
--- NOTE | 2018-01-13 08:37 | General Surgery Progress Note ---
Subjective Progress Notes Subjective No complaints. No further GI bleeding. Physical Exam Vital Signs Date Time Temp Pulse Resp B/P (MAP) Pulse Ox O2 Delivery O2 Flow Rate FiO2 01/13/18 07:44 98.4 76 16 131/60 (83) 93 Nasal Cannula 0.5 General Appearance: Alert, Awake, No Acute Distress, Afebrile GI: Soft and Non-Tender Extremities: Warm, Perfused Result Diagram: 01/13/18 0604 01/12/18 0520 Assessment and Plan Problems: (1) Upper GI bleed Status: Acute Assessment & Plan: 01/10/18: Pt is admitted to the Hospitalist Service. I suspect she has a peptic ulcer, possibly related to toradol she was recently using for leg pain. She is on PPI gtt. She has received 2U of FFP. Will follow H/H and INR. No signs of active bleeding currently and her vitals are stable. Will plan on EGD in the morning. Will need to avoid all NSAIDS and other blood thinners. She can restart coumadin when source of bleeding confirmed and that there's no active bleeding and she's been on appropriate for a few days without further evidence of bleeding. This plan has been explained to her as well as EGD with alternatives, risks, recovery, questions answered, pt would like to proceed with this plan. 01/11/18: Doing well. No evidence of further GI bleeding. Will plan on EGD this morning to confirm UGI cause. Pt agreeable with this plan. 01/12/18: Doing well. I don't think she's actively bleeding but H/H down a little. Will need to follow this until stable and if it continues to drop then will need further workup. No signs of active bleeding on EGD but she had a couple of small esophageal ulcers. Will follow. 01/13/18: Doing well. No further GI bleeding. She can go home today from surgical/GI standpoint. Would send her home on Pantoprazole 40mg every morning , ranitidine, 300mg every night, carafate ac/hs for 30 days then back down to bid, and iron sulfate. She can f/u with her PCM, Daysi Pompa, in the next week to restart her coumadin in a week. She can f/u with me as needed. (2) Anemia due to GI blood loss Status: Acute Condition Stable. Time Spent: < 30 min Exam Sepsis Risk: No Definite Risk MAZIN LOERA MD Jan 13, 2018 08:37
[2018-01-13] MEDS: PANTOPRAZOLE SOD 40 MG TABEC PO SCH (09:28)
[2018-01-13] MEDS ORDERED: SUCR1TAB51 PO (10:52)
[2018-01-13] MEDS ORDERED: RANI-366 PO (10:52)
[2018-01-13] MEDS ORDERED: FERR-53 PO (10:52)
[2018-01-13] MEDS ORDERED: PANT40TA65 PO (10:52)
--- NOTE | 2018-01-13 11:07 | Hospitalist Depart ---
Discharge Summary Reason for Hosp/Final Diag: (1) Upper GI bleed Status: Acute Hospital Course & Plan: She presented with 2-3 days of abdominal pain and hematemesis. Dr. Loera did perform an endoscopy on 01/11. She was noted to have esophageal ulcers, but no active bleeding. She was already on treatment with Protonix and Carafate. She will have ranitidine added and will increase the Carafate from bid to AC/HS. Dr. Loera did recommend that she remain off the warfarin for one week. She will follow up with her PCP and Dr. Loera to decide when to restart the warfarin. (2) Anemia due to GI blood loss Status: Acute Hospital Course & Plan: Exacerbated by warfarin use. She did receive 2 units of red cells and 2 units of FFP. Hemoglobin is now stable. CBC in a week. See above. If bleeding recurs on warfarin then need to consider an IVC filter. (3) PE (pulmonary thromboembolism) Status: Chronic Hospital Course & Plan: She had bilateral PE in April of 2012 and then 2 different DVT's since then while on Warfarin. She did require reversal with vitamin K and FFP. Her warfarin remains on hold as above. (4) Pancytopenia Status: Chronic Hospital Course & Plan: An intermittent low wbc and platelet count has been noted back to 2012. The anemia is secondary to the GI bleed. She probably should have follow up with hematology in regards to the low wbc and platelet count. CBC in a week. (5) T2DM (type 2 diabetes mellitus) Status: Chronic Hospital Course & Plan: She is on chronic treatment with metformin, which was held, but will be restarted. She was receiving sliding scale level #2 coverage. (6) COPD (chronic obstructive pulmonary disease) Status: Chronic Hospital Course & Plan: She is on chronic treatment with albuterol, Atrovent, and Singulair. (7) Mixed hyperlipidemia Status: Chronic Hospital Course & Plan: She is on chronic treatment with simvastatin. (8) Essential hypertension Status: Chronic Hospital Course & Plan: She is on chronic treatment with lisinopril. (9) Depression Status: Chronic Hospital Course & Plan: She is on chronic treatment with fluoxetine. Departure Weight (Pounds): 220 Weight (Ounces): 5.0 Result Diagram: 01/13/18 0604 01/12/18 0520 Item Value Date Time Total Bilirubin 1.4 mg/dl H 01/10/18 0941 Aspartate Amino Transf (AST/SGOT) 36 U/L H 01/10/18 0941 Alanine Aminotransferase (ALT/SGPT) 26 U/L 01/10/18 0941 Alkaline Phosphatase 45 U/L 01/10/18 0941 Blood Urea Nitrogen 30 mg/dl H 01/10/18 0941 Creatinine 0.60 mg/dl 01/10/18 0941 Albumin 3.4 g/dl L 01/10/18 0941 Lipase 99 U/L 01/10/18 0941 Troponin I < 0.012 ng/ml 01/11/18 0557 Blood Urea Nitrogen 24 mg/dl H 01/11/18 0557 Creatinine 0.60 mg/dl 01/11/18 0557 Blood Urea Nitrogen 15 mg/dl 01/12/18 0520 Creatinine 0.60 mg/dl 01/12/18 0520 White Blood Count 8.0 k/uL 01/10/18 0941 Hemoglobin 9.7 g/dL L 01/10/18 0941 Platelet Count 138 K/uL L 01/10/18 0941 Mean Corpuscular Volume 78.7 fL L 01/10/18 0941 Hemoglobin 7.8 g/dL *L 01/10/18 1906 Mean Corpuscular Volume 79.5 fL L 01/10/18 1906 White Blood Count 5.3 k/uL 01/10/18 1906 Platelet Count 79 K/uL L 01/10/18 1906 White Blood Count 5.5 k/uL 01/11/18 0557 White Blood Count 3.3 k/uL L 01/12/18 0520 White Blood Count 2.8 k/uL L 01/13/18 0604 Hemoglobin 9.0 g/dL *L 01/13/18 0604 Hemoglobin 9.2 g/dL L 01/12/18 1537 Hemoglobin 9.0 g/dL *L 01/12/18 0520 Hemoglobin 9.4 g/dL L 01/11/18 1500 Hemoglobin 9.8 g/dL L 01/11/18 0557 Platelet Count 76 K/uL L 01/11/18 0557 Platelet Count 59 K/uL L 01/12/18 0520 Platelet Count 55 K/uL L 01/13/18 0604 Urine RBC None /HPF 01/10/18 1224 Urine WBC 1 /HPF 01/10/18 1224 Urine Squamous Epithelial Cells Moderate /LPF H 01/10/18 1224 Urine Bacteria Negative /HPF 01/10/18 1224 Urine Leukocyte Esterase Negative 01/10/18 1224 Urine Nitrite Negative 01/10/18 1224 Gastric Fluid Occult Blood Positive H 01/10/18 1010 Helicobacter pylori IgG Antibody Negative 01/10/18 1906 Imaging 01/10/18 KUB - 1. NG tube with its tip in the proximal portion of the stomach as detailed above. This could be advanced approximate 5 cm for more optimal radiographic positioning. Abd/Pelvis CT - 1. No acute finding. 2. Unchanged cirrhotic appearing liver. 3. Chronic unchanged T11 wedge compression deformity. 4. Potential severe unchanged stenosis of the left proximal common iliac artery secondary to atherosclerotic plaque. EKG Vent. Rate : 073 BPM Atrial Rate : 073 BPM P-R Int : 130 ms QRS Dur : 080 ms QT Int : 450 ms P-R-T Axes : 051 073 036 degrees QTc Int : 495 ms Normal sinus rhythm Poor R wave progression anteriorly Abnormal ECG When compared with ECG of 10-JAN-2018 19:54, Nonspecific T wave abnormality has replaced inverted T waves in Lateral leads Vent. Rate : 086 BPM Atrial Rate : 086 BPM P-R Int : 122 ms QRS Dur : 078 ms QT Int : 378 ms P-R-T Axes : 036 060 -87 degrees QTc Int : 452 ms Normal sinus rhythm Low voltage QRS T wave abnormality, consider inferolateral ischemia Abnormal ECG When compared with ECG of 30-DEC-2017 12:30, Previous ECG has undetermined rhythm, needs review T wave inversion now evident in Inferior leads T wave inversion now evident in Anterolateral leads Confirmed by BHAVANA FINLEY ([id number]) on 01/10/2018 8:39:17 PM Condition: Improved Discharge: Home Discharge Instructions Home Meds Active Scripts Ranitidine Hcl (ZANTAC) 150 Mg Tablet, 300 MG PO HS, #30 TAB Prov:BHAVANA FINLEY MD 01/13/18 Sucralfate (SUCRALFATE) 1 Gm Tablet, 1 GM PO ACHS1, #120 Prov:BHAVANA FINLEY MD 01/13/18 Ferrous Sulfate (FERROUS SULFATE) 325 Mg Tablet, 325 MG PO BIDBS, #60 Prov:BHAVANA FINLEY MD 01/13/18 Pantoprazole Sodium (PANTOPRAZOLE SODIUM) 40 Mg Tablet.dr, 1 TAB PO DAILY, #60 TAB 11 Refills Prov:BHAVANA FINLEY MD 01/13/18 Montelukast Sodium (SINGULAIR) 10 Mg Tablet, 1 TAB PO HS, #90 TAB 1 Refill Prov:BHAVANA FINLEY MD 01/10/18 Fluoxetine Hcl (FLUOXETINE HCL) 10 Mg Capsule, 1 CAP PO QDAY, #60 CAPSULE 5 Refills Prov:FREDY EWING PHARMD 12/29/17 Ipratropium Amanda 17 Mcg/Act (ATROVENT HFA 17 MCG/ACT) 12.9 Gm Inh, 2 PUFF ASDIRECTED QID, #1 INH 5 Refills Prov:YVETTE THOMAS MD 09/05/17 Albuterol Sulfate (VENTOLIN HFA) 18 Gm Inh, 2 PUFF INH Q4H, #1 INH 5 Refills Prov:YVETTE THOMAS MD 09/03/17 Potassium Chloride (POTASSIUM CHLORIDE) 8 Meq Capsule.er, 1 CAP PO QODAY, #30 TAB 6 Refills Prov:JOSTIN CHO NUMBERER AND WIRER-BC, ONC 09/03/17 Simvastatin (SIMVASTATIN) 20 Mg Tablet, 1 TAB PO HS, #30 TAB 11 Refills Prov:YVETTE THOMAS MD 04/26/14 Lisinopril (LISINOPRIL) 10 Mg Tablet, 1 TAB PO QDAY, #90 TAB 3 Refills Prov:YVETTE THOMAS MD 04/26/14 Reported Medications Albuterol Sulfate 90 Mcg/Act (PROAIR HFA 90 MCG/ACT) 8.5 Gm Hfa.aer.ad, 1-2 PUFF IH 3-4XD Y for SHORTNESS OF BREATH, INHALER 01/10/18 Metformin Hcl (METFORMIN HCL) 500 Mg Tablet, 1 TAB PO TID, TAB 01/10/18 Magnesium Oxide (MAGNESIUM) 250 Mg Tablet, 250 MG PO QDAY 01/10/18 Multivitamin (ONE DAILY MULTIVITAMIN) 1 Each Tablet, 1 EACH PO DAILY 09/05/17 Denosumab (PROLIA) 60 Mg/1 Ml Injs, 60 MG SUBQ Q 6 MONTHS 11/20/16 Cpap (CPAP HOME) Inha, HS with 2.5 liters oxygen 04/04/15 Cholecalciferol (Vitamin D3) (VITAMIN D-3) 2,000 Unit Capsule, 2 CAP PO QDAY 10/27/14 Bimatoprost (LUMIGAN) 2.5 Ml Drops, 1 GTT OU HS 03/24/14 Discontinued Reported Medications Magnesium Hydroxide (MILK OF MAGNESIA) 400 Mg/5 Ml Oral.susp, 4000 MG PO, BOTTLE 12/30/17 Alprazolam (XANAX) 0.5 Mg Tablet, 1 TAB PO TID Y for ANXIETY, TAB 11/20/16 Pnv51/Iron Fum/Fa/Om-3/Dha/Epa ( MULTI + DHA SOFTGEL) 1 Each Capsule, 1 EACH PO QDAY, CAPSULE 10/27/14 Discontinued Scripts Warfarin Sodium (WARFARIN SODIUM) 5 Mg Tablet, 10 MG PO QDAY, #60 TAB 4 Refills Prov:YVETTE THOMAS MD 12/12/17 Sucralfate (SUCRALFATE) 1 Gm Tablet, 1 GM PO BID, #60 TAB 5 Refills Prov:YVETTE THOMAS MD 07/09/17 Ketorolac Tromethamine (KETOROLAC TROMETHAMINE) 10 Mg Tab, 10 MG PO Q6H, #20 TAB Prov:SHIVANI PAREDES 12/30/17 Ipratropium Amanda (IPRATROPIUM BROMIDE) 0.2 Mg/1 Ml Solution, 500 MCG IH QID, #120 VIAL 5 Refills Prov:YVETTE THOMAS MD 12/12/17 Nystatin 100,000 Unit/Gm Top Powder (NYSTATIN 100,000 UNIT/GM TOP POWDER) 15 Gm Powder, 15 GM TP 2-3XD, #1 BOTTLE 1 Refill apply thin layer to affected area 2-3 times daily as needed until healed Prov:YVETTE THOMAS MD 10/21/17 Special Instructions: Stop warfarin for a week. Follow up with Dr. Loera to follow up symptoms and decide when to restart warfarin. Go to the ER for vomiting blood or coffee ground substance in the vomit. Go to the ER for chest pain or leg swelling. CBC in a week to check anemia Follow up with PCP in 1-2 weeks. Copies to: JOSTIN CHO NUMBERER AND WIRER-BC, ONC; MAZIN LOERA MD Venous Thromboembolism Antithrombotics Is Pt On Any Antithrombotics?: Yes BHAVANA FINLEY MD Jan 13, 2018 11:07
[2018-01-13 11:10] VITALS: BP 130/60
== END 2018-01-13 13:20 | disposition home or self-care (01) | DRG 381 ==
LOC: ER 09:29 → MED 13:39
PROVIDERS: ADMIT Internal Medicine; ATTEND Internal Medicine
PROC: 30233K1 Transfusion of Nonautologous Frozen Plasma into Peripheral Vein, Percutaneous Approach (ICD-10-PCS; principal; 2018-01-10)
PROC: 30233N1 Transfusion of Nonautologous Red Blood Cells into Peripheral Vein, Percutaneous Approach (ICD-10-PCS; 2018-01-10)
PROC: 0DJ08ZZ Inspection of Upper Intestinal Tract, Via Natural or Artificial Opening Endoscopic (ICD-10-PCS; 2018-01-11)
DX: K22.10 Ulcer of esophagus without bleeding (principal); D62 Acute posthemorrhagic anemia; D61.818 Other pancytopenia; D68.32 Hemorrhagic disorder due to extrinsic circulating anticoagulants; K92.0 Hematemesis; E11.9 Type 2 diabetes mellitus without complications; J44.9 Chronic obstructive pulmonary disease, unspecified; E78.2 Mixed hyperlipidemia; I10 Essential (primary) hypertension; F32.9 Major depressive disorder, single episode, unspecified; T45.515A Adverse effect of anticoagulants, initial encounter; I25.10 Atherosclerotic heart disease of native coronary artery without angina pectoris; M46.1 Sacroiliitis, not elsewhere classified; K92.1 Melena; K74.60 Unspecified cirrhosis of liver; G47.33 Obstructive sleep apnea (adult) (pediatric); Z87.891 Personal history of nicotine dependence; Z86.711 Personal history of pulmonary embolism; Z79.01 Long term (current) use of anticoagulants; Z92.21 Personal history of antineoplastic chemotherapy; Z92.3 Personal history of irradiation; Z99.81 Dependence on supplemental oxygen; Z90.49 Acquired absence of other specified parts of digestive tract; Z88.1 Allergy status to other antibiotic agents; Z88.0 Allergy status to penicillin; Z88.2 Allergy status to sulfonamides; Z85.3 Personal history of malignant neoplasm of breast; Z79.84 Long term (current) use of oral hypoglycemic drugs
CPT/HCPCS: 36415; 36416; 36430; 74018; 74177; 81001; 82040; 82247; 82271; 82310; 82374; 82435; 82565; 82947; 82948; 83690; 83986; 84075; 84132; 84155; 84295; 84450; 84460; 84484; 84520; 85014; 85018; 85025; 85610; 85730; 86677; 86850; 86900; 86901; 86920; 93005; 94640; 96372; 96374; 96375; 99285; A9270; C9113; J1940; J2405; J2704; J3010; J3430; J3490; J7030; J7050; J7644; P9016; P9017; Q9967

== ENCOUNTER → 2018-01-27 | Outpatient (CLI) | payer MEDICARE ==
[2018-01-11 11:44] VITALS: BMI 43.0
[~2018-01-27] MED LIST changes: +RANI-366 PO
[2018-01-27 09:40] LABS: PLATELET COUNT, AUTOMATED 83 K/uL (150-450)
== END ==
LOC: LAB 09:23
PROVIDERS: ATTEND Surgery
DX: D61.818 Other pancytopenia (principal)
CPT/HCPCS: 36415; 85025

== ENCOUNTER → 2018-01-30 | Outpatient (CLI) | payer MEDICARE ==
[2018-01-11 11:44] VITALS: BMI 43.0
[~2018-01-30] MED LIST changes: +IOPAMIDOL 76% 100 ML INFUS BTL 100 ML ONE; +NS 0.9% 25 ML BAG 50 ML ONE
--- NOTE | 2018-01-30 14:07 | RADIOLOGY IMAGING REPORT ---
FACILITY: [facility] PATIENT NAME: Latonya Chang : 1950 MR: [id number] V: [id number] EXAM DATE: ORDERING PHYSICIAN: JOSTIN CHO TECHNOLOGIST: Location: [facility] [place] Patient: Latonya Chang : 1950 Visit/Account:[id number] Date of Sevice: 01/30/2018 CTA CHEST WW/O CNTR (PULM ANG) HISTORY: Shortness of breath and cough TECHNIQUE: CTA chest with intravenous contrast attention to pulmonary arteries. Sagittal, coronal a nd slab 3D MIP coronal reconstructed images were also created for further evaluation and interpretati on. One of the following dose optimization techniques was utilized in the performance of this exam: Autom ated exposure control; adjustment of the mA and/or kV according to the patient's size; or use of an i terative reconstruction technique. Specific details can be referenced in the facility's radiology CT exam operational policy. CONTRAST: 75 mL Isovue-370. COMPARISON: CT dated March 22, 2014. FINDINGS: Heart/vessels: Satisfactory opacification of the pulmonary arteries without visualized pulmonary emb olus. Prominence of the main pulmonary artery measuring up to 3.8 cm which is nonspecific however ca n be seen in setting of pulmonary arterial hypertension. Advanced calcifications within the coronary arteries. Otherwise negative. Mediastinum: Dystrophic calcification within the right thyroid lobe. Otherwise negative. Lymph nodes: Negative. Lungs/pleura: Mild bibasilar atelectasis. 5 mm solid nodule within the left upper lobe (image 64 of series 6), grossly unchanged since prior CT and benign given chronicity. Visualized upper abdomen: Cirrhotic appearance of the liver with partial visualization of splenomegal y and abdominal varices. Chronic appearing calcification within the left adrenal gland. Otherwise n egative. Bones/soft tissues: Heterogeneous calcification within the deep left breast. Partial visualization of heterogeneous soft tissue mass within the left breast, not significant change in appearance since 2013. Mild left breast skin thickening, not significant changed. Chronic T11 superior endplate mild compression fracture, unchanged. Multilevel degenerative changes within the thoracic spine. IMPRESSION: 1. No acute findings. Negative for pulmonary was. 2. Advanced calcination occasions within the coronary arteries. 3. Additional incidental/chronic finding, as above. Report Dictated By: Randell Hutchins MD at 01/30/2018 1:52 PM Report E-Signed By: Randell Hutchins MD at 01/30/2018 2:03 PM WSN:[id number]
== END ==
LOC: CT 12:21
PROVIDERS: ATTEND Nurse Practitioner Family
DX: I25.10 Atherosclerotic heart disease of native coronary artery without angina pectoris (principal); R06.00 Dyspnea, unspecified; J44.9 Chronic obstructive pulmonary disease, unspecified; Z86.711 Personal history of pulmonary embolism
CPT/HCPCS: 36415; 71275; Q9967; 82040; 82247; 82310; 82374; 82435; 82565; 82947; 84075; 84132; 84155; 84295; 84450; 84460; 84520

== ENCOUNTER → 2018-02-05 | Outpatient (CLI) | payer MEDICARE ==
[2018-01-11 11:44] VITALS: BMI 43.0
[~2018-02-05] MED LIST changes: -IOPAMIDOL 76% 100 ML INFUS BTL 100 ML ONE; -NS 0.9% 25 ML BAG 50 ML ONE
[2018-02-05 09:15] LABS: LDL CHOLESTEROL 46 mg/dl
== END ==
LOC: LAB 08:19
PROVIDERS: ATTEND Nurse Practitioner Family
DX: F41.8 Other specified anxiety disorders (principal); J44.9 Chronic obstructive pulmonary disease, unspecified; Z86.39 Personal history of other endocrine, nutritional and metabolic disease; Z86.711 Personal history of pulmonary embolism; R73.01 Impaired fasting glucose; R53.81 Other malaise; E87.8 Other disorders of electrolyte and fluid balance, not elsewhere classified; D50.9 Iron deficiency anemia, unspecified; E53.8 Deficiency of other specified B group vitamins; E55.9 Vitamin D deficiency, unspecified
CPT/HCPCS: 36415; 82040; 82247; 82306; 82310; 82374; 82435; 82465; 82565; 82607; 82728; 82947; 83036; 83718; 84075; 84132; 84155; 84295; 84443; 84450; 84460; 84478; 84520; 85027; 86140

== ENCOUNTER → 2018-03-02 | Outpatient (CLI) | payer MEDICARE ==
[2018-01-11 11:44] VITALS: BMI 43.0
[2018-03-02 10:25] LABS: PLATELET COUNT, AUTOMATED 90 K/uL (150-450)
== END ==
LOC: LAB 10:11
PROVIDERS: ATTEND Internal Medicine Hematology
DX: C50.919 Malignant neoplasm of unspecified site of unspecified female breast (principal)
CPT/HCPCS: 36415; 82040; 82247; 82310; 82374; 82435; 82565; 82947; 84075; 84132; 84155; 84295; 84450; 84460; 84520; 85025; 86300

== ENCOUNTER 2018-03-12 11:30 | Outpatient (RCR) | payer MEDICARE ==
[2018-01-11 11:44] VITALS: Wt 99.6 kg
[2018-03-12 12:09] VITALS: BP 144/72
--- NOTE | 2018-03-12 15:18 | ONCOLOGY FOLLOW UP NOTE ---
EVENT DATE: March 12, 2018 EVENT DATE: February 27, 2017 DIAGNOSES 1. Left breast invasive ductal carcinoma. 2. Diabetes mellitus. 3. Osteoporosis. 4. Glaucoma. 5. Chronic obstructive pulmonary disease. 6. Asthma. CHIEF COMPLAINT The patient is here today for followup of her left breast cancer. ONCOLOGY HISTORY The patient is a 68-year-old woman who presented with abnormal mammogram in October 2011 where there was 2.1 cm left breast spiculated region at the upper- outer quadrant of the left breast. With additional mammography completed October 24, 2011, this showed 1.6 spiculated mass in the upper-outer quadrant of the left breast. Ultrasound done on October 24, 2011, did reveal 1.1 cm irregular, hypoechoic, shadowing mass in the upper-outer quadrant of the left breast at 2 o'clock position. Left breast biopsy on October 29, 2011, came back positive for invasive ductal carcinoma, ER negative, NC negative, HER-2/prashanth negative, grade 2/3. The patient ended up having lumpectomy, and following surgery, had adjuvant chemotherapy with six cycles of TC regimen with Taxotere and cyclophosphamide received between January 08, 2012, through April 22, 2012. This was followed by adjuvant radiation therapy, and patient was put into complete remission. HISTORY OF PRESENT ILLNESS Patient is here today for followup of her left breast cancer. She had been discharged from the hospital in January after having upper GI bleeding, and she had an EGD on the January which showed esophageal ulcers, put on Protonix and Carafate, and she is doing better currently. She was also put on iron pills. She is complaining of chills and nasal discharge, occasional nausea, and alternating diarrhea and constipation. She has cough with expectoration. She has pain in her hands, legs, and hips. She has also tingling and numbness in the hands and feet, and she is weak, tired, and fatigued. PAST MEDICAL HISTORY 1. Diabetes mellitus. 2. Osteoporosis. 3. Glaucoma. 4. Chronic obstructive pulmonary disease. 5. Asthma. 6. Anxiety/depression. 7. Hypertension. 8. Hyperlipidemia. PAST SURGICAL HISTORY 1. In 1986, the patient had section. 2. Cholecystectomy. 3. Hemorrhoidectomy. 4. Polydactyl. 5. Left broken ankle. SOCIAL HISTORY The patient is single. She has one child, a son. The patient is retired. Denies any abuse of tobacco, alcohol, or drugs. She used occasional drugs in the past. FAMILY HISTORY Grandmother had stomach cancer, an uncle with lymphoma, a brother with prostate cancer at age 57. CURRENT MEDICATIONS 1. Coumadin. 2. Potassium chloride. 3. Singulair 10 mg daily. 4. Hydrocodone/APAP 5/325 mg p.r.n. pain. 5. Simvastatin 20 mg daily. 6. Lisinopril 10 mg daily. 7. Magnesium oxide. 8. Oxygen. 9. CPAP. 10. Vitamin D3 at 2000 units daily. 11. Ipratropium bromide inhaler twice daily. 12. Aspirin 81 mg daily. 13. Prolia 60 mg every six months. 14. Omeprazole 20 mg daily. 15. Lumigan 2.5 mg drops. 16. Metformin 500 mg three times daily. 17. Albuterol inhaler two puffs q.4 hours p.r.n. 18. Oxycodone/APAP 5/325 p.r.n. for pain. ALLERGIES AMOXICILLIN causing hives. ERYTHROMYCIN causing hives. SULFA. REVIEW OF SYSTEMS CONSTITUTIONAL: She has chills and nausea. She has nasal discharge. HEENT: Ears: No tinnitus or hearing problem. Nose: She has nasal discharge and occasional epistaxis. Throat: She has sore throat. Eyes: No diplopia or visual changes. RESPIRATORY: She has cough with expectoration. CARDIOVASCULAR: No chest pain, orthopnea, or paroxysmal nocturnal dyspnea (PND). No edema. No palpitations. GASTROINTESTINAL: She has occasional nausea. She has alternating diarrhea and constipation. GENITOURINARY: No hematuria or dysuria. MUSCULOSKELETAL: She has pain in the hands, legs, and hips. NEUROLOGIC: She has tingling and numbness in the hands and feet. HEMATOLOGIC/LYMPHATIC: She is weak, tired, and fatigued. No enlarged lymph nodes. SKIN: No skin rash or lumps. PSYCHIATRIC: No anxiety or depression. PHYSICAL EXAMINATION GENERAL: Looks stable. Well developed, well nourished, and in no acute distress. VITAL SIGNS: Blood pressure 144/72, pulse 86 per minute, respirations 16 per minute, temperature 96.9, pulse ox 90% on room air. HEENT: Head: Atraumatic. No sinus tenderness to palpation. Eyes: No icterus or conjunctivitis. Mouth and throat: No oral thrush or mucositis. NECK: Supple. No cervical or supraclavicular lymphadenopathy. LUNGS: Clear to auscultation and percussion bilaterally. HEART: Regular rate and rhythm. No gallops, murmurs, clicks, or rubs. ABDOMEN: Soft and lax. No tenderness. No hepatosplenomegaly. No masses. EXTREMITIES: No cyanosis, clubbing, or edema. LYMPHATICS: No peripheral lymphadenopathy. NEUROLOGICAL: Conscious, alert, and oriented times three. No focal motor or sensory deficits. PSYCHIATRIC: Mood and affect appear normal. SKIN: No skin rash, bruise, or purpuric eruption. DIAGNOSTIC DATA CBC showed white count 3.9, hemoglobin 11.9, hematocrit 37.3, platelets 90,000. Blood sugar 172. CA27.29 is normal at 25.7. ASSESSMENT 1. Stage II ([id number]) left breast invasive ductal carcinoma. One sentinel lymph node was negative for metastasis. Tumor size was 2.4 cm, triple negative. Patient received six courses of adjuvant chemotherapy with TC regimen with cyclophosphamide and Taxotere between January 08, 2012, through April 22, 2012, followed by radiation therapy with 59.4 Gy received between May 25, 2012, through July 22, 2012. Patient currently in remission. I am planning to continue followup. I will see her again in a year from now with CBC, chem panel, and CA27.29. 2. History of gastrointestinal bleeding due to esophageal ulcers, status post esophagogastroduodenoscopy the January. Currently on Carafate, Protonix, and Pepcid. She is doing fine. 3. History of bilateral pulmonary embolism, currently on Coumadin. 4. Diabetes mellitus, on metformin. 5. Osteoporosis. 6. Chronic obstructive pulmonary disease. 7. Depression and anxiety. PLAN 1. Continue followup. 2. Patient to return in one year with CBC, chem panel, and CA27.29. 3. Patient is to contact us for any new concerns or complaints. [facility]
== END 2018-03-13 09:00 | disposition home or self-care (01) ==
LOC: ONC 11:30
PROVIDERS: ATTEND Internal Medicine Hematology
DX: Z85.3 Personal history of malignant neoplasm of breast (principal); Z86.711 Personal history of pulmonary embolism; Z79.01 Long term (current) use of anticoagulants; E11.9 Type 2 diabetes mellitus without complications; M81.0 Age-related osteoporosis without current pathological fracture; J44.9 Chronic obstructive pulmonary disease, unspecified; Z92.21 Personal history of antineoplastic chemotherapy; Z92.3 Personal history of irradiation
CPT/HCPCS: 99212

== ENCOUNTER → 2018-04-08 | Outpatient (CLI) | payer MEDICARE ==
[2018-01-11 11:44] VITALS: BMI 43.0
[~2018-04-08] MED LIST changes: -METF-411 PO; +METF-450 PO
== END ==
LOC: LAB 09:20
PROVIDERS: ATTEND Nurse Practitioner Family
DX: F41.8 Other specified anxiety disorders (principal); B37.9 Candidiasis, unspecified; R10.9 Unspecified abdominal pain; J44.9 Chronic obstructive pulmonary disease, unspecified; Z86.39 Personal history of other endocrine, nutritional and metabolic disease; Z86.711 Personal history of pulmonary embolism; E78.00 Pure hypercholesterolemia, unspecified; M81.0 Age-related osteoporosis without current pathological fracture; J18.9 Pneumonia, unspecified organism
CPT/HCPCS: 36415; 82040; 82247; 82310; 82374; 82435; 82565; 82607; 82728; 82947; 83036; 83880; 84075; 84132; 84155; 84295; 84450; 84460; 84520; 85027

== ENCOUNTER 2018-05-11 06:51 | Outpatient (RCR) | payer MEDICARE ==
[2018-01-11 11:44] VITALS: BMI 43.0
[~2018-05-11 06:51] MED LIST changes: -HYDR-4309 PO; +HYDR-653 PO; -METR-160 PO; +METR500T54 PO; +SITA25TA PO
== END 2018-06-15 08:21 | disposition home or self-care (01) ==
LOC: ONC 06:51
PROVIDERS: ATTEND Internal Medicine Hematology
DX: C50.919 Malignant neoplasm of unspecified site of unspecified female breast (principal)

== ENCOUNTER 2018-05-26 12:55 | Outpatient (RCR) | payer MEDICARE ==
[2018-01-11 11:44] VITALS: BMI 43.0
[2018-04-28 13:06] VITALS: BP 133/66
[2018-04-28] MEDS: IRON SUCROSE 100 MG/5 ML VIAL IVP PRN (13:22)
[2018-04-28] MEDS: LIDOCAINE/SOD BICARB 8.4% SYR ID PRN (13:22)
[2018-04-28] MEDS: NS(*) 0.9% 100 ML BAG 100 ML IVPB PRN ×2 (13:22→13:23)
[2018-04-28 14:24] VITALS: BP 123/61
[2018-05-05] MEDS: LIDOCAINE/SOD BICARB 8.4% SYR ID PRN (13:12)
[2018-05-05] MEDS: NS(*) 0.9% 100 ML BAG 100 ML IVPB PRN (13:12)
[2018-05-05] MEDS: IRON SUCROSE 100 MG/5 ML VIAL IVP PRN (13:12)
[2018-05-05 13:16] VITALS: BP 127/74
[2018-05-12] MEDS: NS(*) 0.9% 100 ML BAG 100 ML IVPB PRN (13:13)
[2018-05-12] MEDS: IRON SUCROSE 100 MG/5 ML VIAL IVP PRN (13:13)
[2018-05-12] MEDS: LIDOCAINE/SOD BICARB 8.4% SYR ID PRN (13:13)
[2018-05-12 13:21] VITALS: BP 124/63
[2018-05-19] MEDS: NS(*) 0.9% 100 ML BAG 100 ML IVPB PRN (13:11)
[2018-05-19] MEDS: LIDOCAINE/SOD BICARB 8.4% SYR ID PRN (13:12)
[2018-05-19] MEDS: IRON SUCROSE 100 MG/5 ML VIAL IVP PRN (13:12)
[2018-05-19 13:41] VITALS: BP 116/64
[2018-05-19 13:56] VITALS: BP 123/65
[2018-05-22 14:58] VITALS: BP 146/73
[~2018-05-26 12:55] MED LIST changes: +DENOSUMAB 60 MG/1 ML SYR SUBQ ONE; +DEXTROSE 5%(*) 100 ML BAG 100 ML IVPB PRN
[2018-05-26] MEDS: IRON SUCROSE 100 MG/5 ML VIAL IVP PRN (13:28)
[2018-05-26] MEDS: LIDOCAINE/SOD BICARB 8.4% SYR ID PRN (13:28)
[2018-05-26] MEDS: NS(*) 0.9% 100 ML BAG 100 ML IVPB PRN (13:28)
[2018-05-26 13:29] VITALS: BP 140/69
== END 2018-06-10 11:22 | disposition home or self-care (01) ==
LOC: SPU 12:55
PROVIDERS: ATTEND Nurse Practitioner Family
DX: D50.9 Iron deficiency anemia, unspecified (principal); M81.0 Age-related osteoporosis without current pathological fracture
CPT/HCPCS: 96365; 96374; J0897; J1756; J7050; 96372

== ENCOUNTER → 2018-06-23 | Outpatient (CLI) | payer MEDICARE ==
[2018-01-11 11:44] VITALS: BMI 43.0
[~2018-06-23] MED LIST changes: +ABILIF5PT PO; -DENOSUMAB 60 MG/1 ML SYR SUBQ ONE; -DEXTROSE 5%(*) 100 ML BAG 100 ML IVPB PRN
== END ==
LOC: LAB 07:44
PROVIDERS: ATTEND Nurse Practitioner Family
DX: R53.81 Other malaise (principal); R73.01 Impaired fasting glucose; D50.9 Iron deficiency anemia, unspecified
CPT/HCPCS: 36415; 82728; 83036; 85027

== ENCOUNTER → 2018-08-13 | Outpatient (CLI) | payer MEDICARE ==
[2018-01-11 11:44] VITALS: BMI 43.0
[~2018-08-13] MED LIST changes: -ALEN70TA2 PO; +ALEN70TA46 PO; +METR500T15 PO; -METR500T54 PO
== END ==
LOC: LAB 10:52
PROVIDERS: ATTEND Nurse Practitioner Family
DX: J44.9 Chronic obstructive pulmonary disease, unspecified (principal); D50.9 Iron deficiency anemia, unspecified; R25.2 Cramp and spasm; R53.83 Other fatigue; E83.42 Hypomagnesemia; R53.81 Other malaise
CPT/HCPCS: 36415; 82040; 82247; 82310; 82374; 82435; 82565; 82728; 82947; 83735; 84075; 84132; 84155; 84295; 84443; 84450; 84460; 84520

== ENCOUNTER → 2018-10-02 | Outpatient (CLI) | payer MEDICARE ==
[2018-01-11 11:44] VITALS: BMI 43.0
[~2018-10-02] MED LIST changes: +MAGN400T36 PO
[2018-10-02 10:30] LABS: PLATELET COUNT, AUTOMATED 73 K/uL (150-450)
== END ==
LOC: LAB 10:09
PROVIDERS: ATTEND Nurse Practitioner Family
DX: I10 Essential (primary) hypertension (principal); E87.6 Hypokalemia; Z85.3 Personal history of malignant neoplasm of breast; E83.42 Hypomagnesemia; R25.2 Cramp and spasm; Z87.19 Personal history of other diseases of the digestive system; R73.09 Other abnormal glucose
CPT/HCPCS: 36415; 82040; 82247; 82310; 82374; 82435; 82565; 82947; 83036; 83735; 84075; 84132; 84155; 84295; 84450; 84460; 84520; 85025

== ENCOUNTER → 2018-10-16 | Outpatient (CLI) | payer MEDICARE ==
[2018-01-11 11:44] VITALS: BMI 43.0
== END ==
LOC: US 02:16
PROVIDERS: ATTEND Nurse Practitioner Family
DX: I51.7 Cardiomegaly (principal); I34.0 Nonrheumatic mitral (valve) insufficiency
CPT/HCPCS: 93306

== ENCOUNTER → 2018-10-23 | Outpatient (REF) | payer MEDICARE ==
[2018-01-11 11:44] VITALS: BMI 43.0
[2018-10-23 14:45] LABS: PLATELET COUNT, AUTOMATED 72 K/uL (150-450)
[2018-10-23 14:49] LABS: LDL CHOLESTEROL 78 mg/dl
== END ==
LOC: ZZSENDIN 14:34
PROVIDERS: ATTEND Nurse Practitioner Family
DX: R53.81 Other malaise (principal); E87.8 Other disorders of electrolyte and fluid balance, not elsewhere classified; R73.01 Impaired fasting glucose; D50.9 Iron deficiency anemia, unspecified; E78.00 Pure hypercholesterolemia, unspecified
CPT/HCPCS: 82040; 82247; 82310; 82374; 82435; 82465; 82565; 82728; 82947; 83036; 83718; 84075; 84132; 84155; 84295; 84450; 84460; 84478; 84520; 85025

== ENCOUNTER → 2018-10-23 | Outpatient (CLI) | payer MEDICARE ==
[2018-01-11 11:44] VITALS: BMI 43.0
== END ==
LOC: LAB 08:33
PROVIDERS: ATTEND Nurse Practitioner Family
DX: E83.42 Hypomagnesemia (principal)
CPT/HCPCS: 36415; 83735

== ENCOUNTER 2018-11-28 14:32 | Emergency (ER) | payer MEDICARE ==
[2018-01-11 11:44] VITALS: Wt 99.9 kg
--- NOTE | 2018-11-28 14:49 | ER Report ---
History and Physical Time Seen By MD: 14:34 (PETER CURRY MD) HPI/ROS CHIEF COMPLAINT: Fall, one week ago, complained of concussion-like symptoms, neck pain also with lumbar back pain and bilateral hip pain. HISTORY OF PRESENT ILLNESS: Patient is a 60-year-old female with multiple medical problems who states approximately 1 week ago she slipped in some mud while trying to get into her car fell backwards onto her butt and low back. She does not recall hitting her head but is not sure. 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 She has a history of breast cancer which is felt to be in remission at this time. She states that since the fall she was having initially some right-sided low back and right hip pain that has now progressed to left-sided low back pain and left hip pain she is also complaining of the thinking along with some low-grade headache. She is also complaining of burning across bilateral trapezius muscles that has been there prior to the fall but worsened after. REVIEW OF SYSTEMS: Respiratory: No cough, no dyspnea. Cardiovascular: Chest wall pain, no palpitations Gastrointestinal: No vomiting, no abdominal pain. Musculoskeletal: Lumbar back pain bilateral hip pain. (PETER CURRY MD) Allergies: Coded Allergies: Sulfa (Sulfonamide Antibiotics) (Verified Allergy, Mild, rash, 01/10/18) amoxicillin (Verified Allergy, Mild, rash, 01/10/18) erythromycin base (Verified Allergy, Mild, rash, 01/10/18) adhesive (Verified Allergy, Unknown, local reaction only if on for a long time, 01/10/18) morphine (Verified Adverse Reaction, Unknown, vomiting, 01/10/18) Home Meds Active Scripts Warfarin Sodium (WARFARIN SODIUM) 5 Mg Tablet, 2-3 TAB PO QDAY for 30 Days, #80 TAB 5 Refills Prov:FREDY EWING PHARMD 09/09/18 Ranitidine Hcl (ZANTAC) 150 Mg Tablet, 300 MG PO HS, #30 TAB Prov:BHAVANA FINLEY MD 01/13/18 Sucralfate (SUCRALFATE) 1 Gm Tablet, 1 GM PO ACHS1, #120 Prov:BHAVANA FINLEY MD 01/13/18 Ferrous Sulfate (FERROUS SULFATE) 325 Mg Tablet, 325 MG PO BIDBS, #60 Prov:BHAVANA FINLEY MD 01/13/18 Pantoprazole Sodium (PANTOPRAZOLE SODIUM) 40 Mg Tablet.dr, 1 TAB PO DAILY, #60 TAB 11 Refills Prov:BHAVANA FINLEY MD 01/13/18 Montelukast Sodium (SINGULAIR) 10 Mg Tablet, 1 TAB PO HS, #90 TAB 1 Refill Prov:BHAVANA FINLEY MD 01/10/18 Fluoxetine Hcl (FLUOXETINE HCL) 10 Mg Capsule, 1 CAP PO QDAY, #60 CAPSULE 5 Refills Prov:FREDY EWING PHARMD 12/29/17 Ipratropium [place] 17 Mcg/Act (ATROVENT HFA 17 MCG/ACT) 12.9 Gm Inh, 2 PUFF ASDIRECTED QID, #1 INH 5 Refills Prov:YVETTE THOMAS MD 09/05/17 Albuterol Sulfate (VENTOLIN HFA) 18 Gm Inh, 2 PUFF INH Q4H, #1 INH 5 Refills Prov:YVETTE THOMAS MD 09/03/17 Potassium Chloride (POTASSIUM CHLORIDE) 8 Meq Capsule.er, 1 CAP PO QODAY, #30 TAB 6 Refills Prov:JOSTIN CHO CREDIT CONTROL MANAGER-BC, ONC 09/03/17 Simvastatin (SIMVASTATIN) 20 Mg Tablet, 1 TAB PO HS, #30 TAB 11 Refills Prov:YVETTE THOMAS MD 04/26/14 Lisinopril (LISINOPRIL) 10 Mg Tablet, 1 TAB PO QDAY, #90 TAB 3 Refills Prov:YVETTE THOMAS MD 04/26/14 Reported Medications Magnesium Oxide (MAGNESIUM OXIDE) 400 Mg Tablet, 1 TAB PO TID 09/09/18 Aripiprazole (ABILIFY) 5 Mg Tablet, 1 TAB PO QDAY, #10 TAB 06/22/18 Sitagliptin Phosphate (JANUVIA) Unknown Strength Tablet, 100 MG PO QDAY 04/29/18 Albuterol Sulfate 90 Mcg/Act (PROAIR HFA 90 MCG/ACT) 8.5 Gm Hfa.aer.ad, 1-2 PUFF IH 3-4XD PRN for SHORTNESS OF BREATH, INHALER 01/10/18 Metformin Hcl (METFORMIN HCL) 500 Mg Tablet, 1 TAB PO TID, TAB 01/10/18 Multivitamin (ONE DAILY MULTIVITAMIN) 1 Each Tablet, 1 EACH PO DAILY 09/05/17 Denosumab (PROLIA) 60 Mg/1 Ml Injs, 60 MG SUBQ Q 6 MONTHS 11/20/16 Cpap (CPAP HOME) Inha, HS with 2.5 liters oxygen 04/04/15 Cholecalciferol (Vitamin D3) (VITAMIN D-3) 2,000 Unit Capsule, 2 CAP PO QDAY 10/27/14 Bimatoprost (LUMIGAN) 2.5 Ml Drops, 1 GTT OU HS 03/24/14 Past Medical/Surgical History Past medical history for DVT currently on Coumadin. History of hyperlipidemia, hypertension, asthma, COPD, pulmonary embolism, type II diabetes, history of breast cancer and skin cancer (PETER CURRY MD) Hx Smoking: Yes Smoking Status: Former Smoker Exposure to Second Hand Smoke?: Yes Hx Substance Use Disorder: Yes (SOMETIMES I SMOKE POT) Hx Alcohol Use: No (PETER CURRY MD) Constitutional Vital Sign - Last 24 Hours 11/28/18 14:41 Temp 99.1 Pulse 85 Resp 24 B/P (MAP) 149/71 Pulse Ox 83 O2 Delivery Room Air (KYLE BUENO DO) Physical Exam General Appearance: The patient is alert, has no immediate need for airway protection and no current signs of toxicity. Elevated BMI Eyes: Pupils equal and round no injection. Extraocular muscles are intact and symmetrical Respiratory: Chest is non tender, lungs are clear to auscultation. Cardiac: regular rate and rhythm [ ] Gastrointestinal: Abdomen is soft and non tender, no masses, bowel sounds normal. Musculoskeletal: Neck: No midline C-spine tenderness. Upper Extremities have full range of motion and are non tender.; Patient does have pain with range of motion of both hips. He is however able to stand and ambulate. Skin: No rashes or lesions. Patient with bilateral lower paraspinal muscle pain. (PETER CURRY MD) Medical Decision Making Data Points Laboratory Hematology Test 11/28/18 16:19 Prothrombin Time 32.8 seconds (12.0-14.4) Prothromb Time International Ratio 3.12 Chemistry Test 11/28/18 16:19 Prothrombin Time 32.8 seconds (12.0-14.4) Prothromb Time International Ratio 3.12 Coagulation Test 11/28/18 16:19 Prothrombin Time 32.8 seconds Prothromb Time International Ratio 3.12 (KYLE BUENO DO) ED Course/Re-evaluation ED Course 11/28/2018 2:55:59 pm plan at this time will be to perform CT of the head and C-spine I do feel that the likelihood of intracranial hemorrhage is low but the patient is complaining of headache and fuzzy thinking so we will do CT of the head and given her symptoms of burning across both trapezius muscles we'll check a C-spine CT as well. We'll also do bilateral hips and lumbar x-ray. She is also complaining of anterior chest wall pain we'll obtain chest x-ray. (PETER CURRY MD) ED Course Pt signed out pending images. PT does not have any fractures or bleeds. Pt does have degenerative disease. Pt ambulated in the emergency department but feels unsteady do to discomfort. Pt is on blood thinner so I am concerned about possible fall risks. PT was given a walker and felt much more comfortable with walking. Will d/c with walker. Decision to Disposition Date: November 28, 2018 Decision to Disposition Time: 18:12 (KYLE BUENO DO) Depart Departure Latest Vital Signs Vital Signs Date Time Temp Pulse Resp B/P (MAP) Pulse Ox O2 Delivery O2 Flow Rate FiO2 11/28/18 14:41 99.1 85 24 149/71 83 Room Air (KYLE BUENO DO) Impression: Primary Impression: Fall Additional Impressions: Osteoarthritis Hip pain, bilateral Condition: Condition Unchanged Disposition: HOME OR SELF-CARE Referrals: JOSTIN CHO CREDIT CONTROL MANAGER-BC, ONC (PCP) 5 Days Patient Instructions: Fall Prevention (ED) Additional Instructions: Your cat scan today did not show any bleeding in her head. Your xrays show no fractures but do show arthritis. Tylenol 650mg every 4 hours as needed for pain. Use your walker as needed for support. Follow up with your family doctor as needed. Problem Qualifiers Primary Impression: Fall Encounter type: initial encounter Qualified Codes: W19.XXXA - Unspecified fall, initial encounter Additional Impressions: Osteoarthritis Osteoarthritis location: unspecified site Osteoarthritis type: unspecified Qualified Codes: M19.90 - Unspecified osteoarthritis, unspecified site PETER CURRY MD November 28, 2018 14:49 KYLE BUENO DO November 28, 2018 18:00
--- NOTE | 2018-11-28 16:14 | RADIOLOGY IMAGING REPORT ---
FACILITY: [facility] PATIENT NAME: Latonya Chang : 1950 MR: [id number] V: [id number] EXAM DATE: ORDERING PHYSICIAN: PETER CURRY TECHNOLOGIST: Location: [facility] Patient: Latonya Chang : 1950 Visit/Account:[id number] Date of Sevice: 11/28/2018 EXAMINATION: CT head without IV contrast HISTORY: Fall, on Coumadin. TECHNIQUE: Axial CT images of the head were obtained from the vertex to the skull base without IV c ontrast, with coronal and sagittal 2D reconstructed images. One of the following dose optimization techniques was utilized in the performance of this exam: Autom ated exposure control; adjustment of the mA and/or kV according to the patient's size; or use of an i terative reconstruction technique. Specific details can be referenced in the facility's radiology C T exam operational policy. COMPARISON: None. FINDINGS: Mild generalized parenchymal atrophy, with mild patchy low attenuation in the deep white matter brock tible with chronic small vessel ischemic change. Intracranial vascular calcifications. No CT evidence of intracranial hemorrhage, mass lesion, or acute infarct. No midline shift or extra-a xial fluid collections. Suh-white differentiation is maintained. The calvarium is intact. The partially visualized paranasal sinuses and mastoid air cells are unopaci fied. IMPRESSION: 1. No CT evidence of acute intracranial pathology. 2. Mild chronic age-related changes. Report Dictated By: Adam Tucker MD at 11/28/2018 4:02 PM Report E-Signed By: Adam Tucker MD at 11/28/2018 4:11 PM WSN:[email or web address]
--- NOTE | 2018-11-28 16:16 | RADIOLOGY IMAGING REPORT ---
[place] [facility] [place]IENT NAME: Latonya Chang : 1950 MR: [id number] V: [id number] EXAM DATE: ORDERING PHYSICIAN: PETER CURRY TECHNOLOGIST: Location: [facility] [place] Patient: Latonya Chang : 1950 Visit/Account:[id number] Date of Sevice: 11/28/2018 CHEST PA LAT INDICATION: fall COMPARISON: None available FINDINGS: The cardiac silhouette is mildly enlarged. There is no focal infiltrate or lobar consolidation. There are diffusely increased interstitial markings noted with mild pulmonary hyperexpansion. IMPRESSION: 1. No acute cardiopulmonary process. 2. Mild cardiomegaly 3. Pulmonary hyperexpansion and mild chronic interstitial change Report Dictated By: Leo Villegas at 11/28/2018 4:11 PM Report E-Signed By: Leo Villegas at 11/28/2018 4:12 PM WSN:[id number]
--- NOTE | 2018-11-28 16:18 | RADIOLOGY IMAGING REPORT ---
FACILITY: [facility] [place] PATIENT NAME: Latonya Chang : 1950 MR: [id number] V: [id number] EXAM DATE: ORDERING PHYSICIAN: PETER CURRY TECHNOLOGIST: [place] [facility] [place]: Latonya Chang : 1950 Visit/Account:[id number] Date of Sevice: 11/28/2018 EXAMINATION: CT cervical spine without IV contrast HISTORY: Fall. TECHNIQUE: Thin axial CT images of the cervical spine were obtained without IV contrast, with sagit jose antonio and coronal 2D reconstructed images. One of the following dose optimization techniques was utilized in the performance of this exam: Autom ated exposure control; adjustment of the mA and/or kV according to the patient's size; or use of an i terative reconstruction technique. Specific details can be referenced in the facility's radiology C T exam operational policy. COMPARISON: CT neck 09/16/2017. FINDINGS: The cervical spine is negative for acute fracture or subluxation. Normal alignment. Vertebral body height is maintained. Chronic multilevel degenerative changes in the cervical spine. There is moderate disc space narrowin g at the C4-C5 through C6-C7 interspaces with endplate osteophyte formation. Moderate facet arthropa thy along the mid and upper left-sided cervical facet joints, with mild right facet arthropathy. The dens is intact. Normal alignment at the craniocervical junction. IMPRESSION: 1. No acute osseous findings along the cervical spine. 2. Chronic multilevel degenerative changes. Report Dictated By: Adam Tucker MD at 11/28/2018 4:11 PM Report E-Signed By: Adam Tucker MD at 11/28/2018 4:14 PM WSN:[email or web address]
--- NOTE | 2018-11-28 16:21 | RADIOLOGY IMAGING REPORT ---
FACILITY: [facility] - [place] PATIENT NAME: Latonya Chang : 1950 MR: [id number] V: [id number] EXAM DATE: ORDERING PHYSICIAN: PETER CURRY TECHNOLOGIST: Location: [facility] [place] Patient: Latonya Chang : 1950 Visit/Account:[id number] Date of Sevice: 11/28/2018 L-SPINE 2 OR 3 VIEW, HIPS BILATERAL Indication: Back pain., fall Comparison: None available FINDINGS: There are 5 lumbar type vertebral bodies. There is no acute osseous or acute alignment abnormality. There is mild diffuse multilevel degenerative disc space disease present. No spondylolisthesis is rosey ntified. Moderate facet arthropathy changes noted at L5-S1. The vertebral body heights appear well-maintained. The abdominal aorta is heavily calcified. Pelvis: No evidence of fracture, dislocation, or acute osseous abnormality of the bones of the pelvis. The hips show mild degenerative change bilaterally. No evidence of fracture seen. IMPRESSION: 1. No acute osseous or acute alignment abnormality of the lumbar spine. 2. Mild spondylitic change of the lumbar spine. 3. Mild bilateral degenerative osteoarthritis of the hips, no acute abnormality noted Report Dictated By: Leo Villegas at 11/28/2018 4:13 PM Report E-Signed By: Leo Villegas at 11/28/2018 4:17 PM WSN:[id number]
--- NOTE | 2018-11-28 16:21 | RADIOLOGY IMAGING REPORT ---
FACILITY: [facility] - [place] PATIENT NAME: Latonya Chang : 1950 MR: [id number] V: [id number] EXAM DATE: ORDERING PHYSICIAN: PETER CURRY TECHNOLOGIST: Location: [facility] [place] Patient: Latonya Chang : 1950 Visit/Account:[id number] Date of Sevice: 11/28/2018 L-SPINE 2 OR 3 VIEW, HIPS BILATERAL Indication: Back pain., fall Comparison: None available FINDINGS: There are 5 lumbar type vertebral bodies. There is no acute osseous or acute alignment abnormality. There is mild diffuse multilevel degenerative disc space disease present. No spondylolisthesis is rosey ntified. Moderate facet arthropathy changes noted at L5-S1. The vertebral body heights appear well-maintained. The abdominal aorta is heavily calcified. Pelvis: No evidence of fracture, dislocation, or acute osseous abnormality of the bones of the pelvis. The hips show mild degenerative change bilaterally. No evidence of fracture seen. IMPRESSION: 1. No acute osseous or acute alignment abnormality of the lumbar spine. 2. Mild spondylitic change of the lumbar spine. 3. Mild bilateral degenerative osteoarthritis of the hips, no acute abnormality noted Report Dictated By: Leo Villegas at 11/28/2018 4:13 PM Report E-Signed By: Leo Villegas at 11/28/2018 4:17 PM WSN:[id number]
[2018-11-28 16:35] LABS: INR 3.12
[2018-11-28 18:00] VITALS: BP 131/66
[2018-11-28] MEDS ORDERED: ACETAMINOPHEN 500 MG TAB PO ONE (18:05)
== END 2018-11-28 18:24 | disposition home or self-care (01) ==
LOC: ER 14:34
DX: M16.0 Bilateral primary osteoarthritis of hip (principal); R51 Headache; W01.0XXA Fall on same level from slipping, tripping and stumbling without subsequent striking against object, initial encounter
CPT/HCPCS: 36415; 70450; 71046; 72100; 72125; 73522; 85610; 99284; A9270

== ENCOUNTER 2018-12-02 13:59 | Outpatient (RCR) | payer MEDICARE ==
[2018-01-11 11:44] VITALS: BMI 43.0
[~2018-12-02 13:59] MED LIST changes: -RANI-366 PO; +RANI-54 PO
[2018-12-02] MEDS ORDERED: DENOSUMAB 60 MG/1 ML SYR SUBQ ONE (14:10)
[2018-12-02 14:11] VITALS: BP 147/66
--- NOTE | 2018-12-08 15:45 | NUR ---
RANDALL rec'd a phone call from the pt reporting she was severely depressed and having suicidal ideation. Although she doesn't want to , she states she does not want to feel sad anymore. She states she does not have a plan for suicide, but has given the idea of not being alive anymore significant thought. Pt requested number for suicide hotline - RANDALL provided the Rhonda Resendiz number [phone]. RANDALL also encouraged pt to reach out to her current therapist, Madonna Reynolds, which she reportedly has but her voicemail is full and she can not leave a message. The pt states she is very sad today because she recently lost her best friend, and also another patient from the cancer center who was a good support to her in group also this weekend. RANDALL also received permission to reach out to [facility] for additional counseling as they now are supporting patients free of charge via the [facility] nivia. RANDALL faxed referral to [facility]. RANDALL also encouraged the pt to call anytime she was feeling down as part of her safety plan.
== END 2019-01-27 10:59 | disposition home or self-care (01) ==
LOC: SPU 13:59
PROVIDERS: ATTEND Nurse Practitioner Family
DX: M81.0 Age-related osteoporosis without current pathological fracture (principal); D50.9 Iron deficiency anemia, unspecified
CPT/HCPCS: 96372; J0897

== ENCOUNTER → 2018-12-28 | Outpatient (CLI) | payer MEDICARE ==
[2018-01-11 11:44] VITALS: BMI 43.0
[2018-12-28 16:54] LABS: INR 3.12
== END ==
LOC: LAB 15:35
PROVIDERS: ATTEND Pharmacist Pharmacotherapy
DX: I26.99 Other pulmonary embolism without acute cor pulmonale (principal)
CPT/HCPCS: 36415; 85610

== ENCOUNTER 2018-12-29 15:15 | Outpatient (RCR) | payer MEDICARE ==
[2018-01-11 11:44] VITALS: BMI 43.0
--- NOTE | 2018-12-02 17:29 | PT INITIAL EVALUATION ---
MEDICAL DIAGNOSIS: R52 Pain, G52.9 Peripheral Neuropathy, M25.50 Joint pain, R25.2 B LE Cramps TREATMENT DIAGNOSIS: Same, LBP, B hip pain DATE OF ONSET: 11/19/18 SUBJECTIVE: Latonya Chang presents to PT for LBP, B hip and thigh pain after a sitting fall in a [place], when she slipped on mud. She reports LBP, L and R posterior hip, lateral thigh and quad pain with walking. She went to [facility] ED 11/28/18 where fractures were ruled out. Oswestry Disability Index 58% impairment. Hip FOTO 74% impairment. Latonya was an independent community ambulator before her fall, now uses a walker and wheelchair. Pain location is B L >R posterior hip to quads, L-S and described as ache. Pain scale is 5 on a ten point pain scale. Pain is worse with standing, walking and better with sitting, ice. REHAB PROBLEM LIST: Increased Pain Decreased ROM Decreased Strength Impaired Transfers Decreased Endurance Decreased Balance Decreased Function Decreased ADL's Decreased Mobility Decreased Gait PREVIOUS MEDICAL HISTORY: DVT, PE, glaucoma, cholecystectomy, L breast cancer, peripheral neuropathy after cancer treatment, L ankle fracture/surgery, DM, OA lumbar, hips.. OCCUPATION: Retired, sedentary. Latonya reports she can't stand more than 5-10 minutes cooking, isn't cleaning her home, showering, has trouble with toilet transfers, is limited with shopping due to L LE buckling with walking. OBJECTIVE: Posture: Heels 8" apart, hand on walker, valgus knees, iliac crests even. ROM: Lumbar AROM flexion 50%, extension 50%, SB B WNL, L SB with R hip pain. Hip PROM IR L 10 deg., R 10 deg., ER L 30 deg., R 10 degrees. Knees AROM extension B 0 degrees. Strength: Quads 3+/5, hamstrings 3+/5 B. Palpation: Painful B posterior hips, IT bands, L-S junction with light palpation. Sensation: NT Special Tests: B hip pain with flexion with adduction (joints). Mobility: Stand pivot transfers with min. assist sit to stand 19" seat height. Mat mobility painful, slow, independent. Gait: No today. Balance: No independent stance. ASSESSMENT: Latonya Chang presents with lumbopelvic pain after a sitting fall, affecting function, mobility, gait, balance. She had less pain after gentle exercise and ice packs. Short Term Goals One month: Latonya ambulates with AD short distances, stands 15 min. to cook, transfers off the toilet with hip pain 2/10. Two months: Latonya is an independent short distance community ambulator, cooks 20 min. standing, cleans her home 20-30 min. with LBP/hip pain 2/10. Patient's Goals Return to prior level of ADL's and normal gait without LBP or B hip pain. PLAN: Patient to be seen for Manual Therapy, Strengthening/condition, Ice/Heat, Range of Motion, Spinal Stabilization, Stretching, Neuromuscular Re-ed, Electrical Stim, Gait Trg/Balance Trg, Home Exercise Program 2x/Week for 2 Months Thank you for this referral. If you have any questions, comments, or concerns about this report or plan, please contact me at . POWER Galeas date MTDD
== END 2018-12-29 18:00 | disposition home or self-care (01) ==
LOC: PT 15:15
PROVIDERS: ATTEND Nurse Practitioner Family
DX: R52 Pain, unspecified (principal); G62.9 Polyneuropathy, unspecified; R25.2 Cramp and spasm
CPT/HCPCS: 97010; 97110; 97162; G0283

== ENCOUNTER → 2019-01-06 | Outpatient (CLI) | payer MEDICARE ==
[2018-01-11 11:44] VITALS: BMI 43.0
[2019-01-06 16:08] LABS: PLATELET COUNT, AUTOMATED 72 K/uL (150-450)
[2019-01-06 16:52] LABS: LDL CHOLESTEROL 66 mg/dl
== END ==
LOC: LAB 15:15
PROVIDERS: ATTEND Nurse Practitioner Family
DX: G62.9 Polyneuropathy, unspecified (principal); D69.6 Thrombocytopenia, unspecified; G47.30 Sleep apnea, unspecified; E78.2 Mixed hyperlipidemia; Z86.711 Personal history of pulmonary embolism; Z86.718 Personal history of other venous thrombosis and embolism; R53.83 Other fatigue; D50.9 Iron deficiency anemia, unspecified; E87.6 Hypokalemia; E83.42 Hypomagnesemia; R25.2 Cramp and spasm; Z87.19 Personal history of other diseases of the digestive system; R73.09 Other abnormal glucose
CPT/HCPCS: 36415; 82040; 82247; 82310; 82374; 82435; 82465; 82565; 82947; 83036; 83718; 84075; 84132; 84155; 84295; 84443; 84450; 84460; 84478; 84520; 85025